=== PATIENT | male | born 1950 | race Two or more races ===

== ENCOUNTER 2018-04-21 08:31 | Emergency (ER) | payer MEDICARE ==
[2018-04-21] MEDS ORDERED: NORMAL SALINE 250 ML IV PRN ×2 (08:43→10:48)
[2018-04-21 08:57] LABS: ABSOLUTE LYMPHOCYTES (AUTO) 4.2 10^3/uL (0.5-4.7); ABSOLUTE MONOCYTES (AUTO) 0.6 10^3/uL (0.1-1.4); ABSOLUTE NEUT (AUTO) 9.2 10^3/uL (1.7-8.2); BASOPHILS % (AUTO) 0.2 % (0-2); EOSINOPHILS % (AUTO) 0.3 % (0-6); LYMPHOCYTES % (AUTO) 29.8 % (13-45); MEAN CORPUSCULAR HEMOGLOBIN 26.3 pg (27.0-33.4); MEAN CORPUSCULAR HGB CONC 31.1 g/dL (32.0-36.0); MEAN CORPUSCULAR VOLUME 85 fl (80-97); MONOCYTES % (AUTO) 4.1 % (3-13); PLATELET COUNT 119 10^3/uL (150-450); RED BLOOD COUNT 2.61 10^6/uL (4.35-5.55); SEGMENTED NEUTROPHILS % (AUTO) 65.6 % (42-78); TOTAL CELLS COUNTED % (AUTO) 100 %; WHITE BLOOD COUNT 14.1 10^3/uL (4.0-10.5)
[2018-04-21 09:04] LABS: HEMOGLOBIN 6.9 g/dL (13.5-17.0)
--- NOTE | 2018-04-21 09:13 | ER Document Report ---
ED GI Bleed / Rectal Pain - General Chief Complaint: Rectal Bleeding Stated Complaint: RECTAL BLEEDING Time Seen by Provider: 04/21/18 09:13 Notes: 67-year-old male to the emergency department via EMS for evaluation of bleeding. Patient was apparently unresponsive. Found in a pool of blood on the couch at home. Covered from head to toe and blood. Patient was recently treated at a local hospital. Had dialysis. Had a dialysis catheter placed in the right anterior chest. This was found pulled out by EMS. They were unable to obtain access so an intraosseous line was placed in the lower extremity. Patient was receiving IV fluids. On arrival to the emergency department patient was conscious of breathing. TRAVEL OUTSIDE OF THE [place] IN LAST 30 DAYS: No - HPI Patient complains to provider of: Bright red bld from rect., Dark red bld from rectum - Related Data Allergies/Adverse Reactions: No Known Allergies Allergy (Verified 04/21/18 09:05) Past Medical History - General Information source: Patient, Relative, [facility] Records - Social History Smoking Status: Current Every Day Smoker Cigarette use (# per day): Yes Drug Abuse: None Lives with: Spouse/Significant other Family History: Reviewed & Not Pertinent - Medical History Notes: Renal failure, GI bleed, diabetes Review of Systems - Review of Systems -: Yes ROS unobtainable due to patient's medical condition Physical Exam - Vital signs Vitals: Resp Pulse Ox 13 99 04/21/18 08:36 04/21/18 08:36 Interpretation: Hypotensive - General General appearance: Lethargic, Other - Ill-appearing, pale In distress: Moderate - HEENT Head: Normocephalic, Atraumatic Eyes: Normal Pupils: PERRL Notes: Small abrasion to the right occipital scalp but no obvious laceration. - Respiratory Respiratory status: No respiratory distress Chest status: Nontender Breath sounds: Normal Chest palpation: Normal - Cardiovascular Rhythm: Regular Heart sounds: Normal auscultation Murmur: No - Abdominal Inspection: Normal Distension: No distension Bowel sounds: Normal Tenderness: Nontender Organomegaly: No organomegaly - Rectal Tenderness: No Stool: Bloody - Back Back: Normal, Nontender - Extremities General upper extremity: Normal inspection, Nontender, Normal color, Normal ROM , Normal temperature General lower extremity: Normal inspection, Nontender, Normal color, Normal ROM , Normal temperature. No: Sanjay's sign - Neurological Neuro grossly intact: Yes Cognition: Normal Orientation: AAOx4 [place] Coma Scale Eye Opening: Spontaneous [place] Coma Scale Verbal: Oriented Armando Coma Scale Motor: Obeys Commands [place] Coma Scale Total: 15 Speech: Normal Motor strength normal: LUE, RUE, LLE, RLE Sensory: Normal - Psychological Associated symptoms: Normal affect, Normal mood - Skin Skin Temperature: Warm Skin Moisture: Dry Skin Color: Other - Patient is covered from head to toe and dried blood. Course - Re-evaluation Re-evalutation: 04/21/18 10:30 Patient covered in dried blood from head to toe. Hypotensive. Unable to obtain access peripherally. Immediately attention to IV access. A triple- lumen catheter central line was placed in the right femoral vein with ultrasound guidance. Please see procedure note. Returned good blood flow to each lumen. Intraosseous line was discontinued. Blood products were ordered immediately and rapid transfusion was begun. Normal saline ordered as well. Anticipate need for rapid transport. Will consult with [facility] in [facility] as patient was recently at that facility and is currently being followed by a nephrology group out of [place]. Patient has extremely elevated lactate but likely due to blood loss and hypoperfusion however has turbid urine. Could definitely represent a concomitant septic picture so we will do blood cultures and treat with broad-spectrum antibiotic. 04/21/18 10:32 04/21/18 10:49 Blood pressure has dropped again. Will order 2 more units of PRBCs for transfusion. Dr. Florian Barry MD has accepted patient for transfer to ICU at [facility]. Anticipate transfer shortly. 04/21/18 11:53 Laboratory 04/21/18 04/21/18 04/21/18 08:45 08:45 08:45 WBC 14.1 H RBC 2.61 L Hgb 6.9 L Hct 22.0 L MCV 85 MCH 26.3 L MCHC 31.1 L RDW 19.0 H Plt Count 119 L Seg Neutrophils % 65.6 Lymphocytes % 29.8 Monocytes % 4.1 Eosinophils % 0.3 Basophils % 0.2 Absolute Neutrophils 9.2 H Absolute Lymphocytes 4.2 Absolute Monocytes 0.6 Absolute Eosinophils 0.0 Absolute Basophils 0.0 PT INR APTT Sodium 136.7 L Potassium 5.9 H Chloride 103 Carbon Dioxide 22 Anion Gap 12 BUN 28 H Creatinine 3.14 H Est GFR ( Amer) 24 L Est GFR (Non-Af Amer) 20 L Glucose 118 H Lactic Acid Calcium 7.7 L Total Bilirubin 0.4 Direct Bilirubin 0.4 Neonat Total Bilirubin Not Reportable Neonat Direct Bilirubin Not Reportable Neonat Indirect Bili Not Reportable AST 73 H ALT 44 Alkaline Phosphatase 85 Creatine Kinase 34 L CK-MB (CK-2) Troponin I Total Protein 4.6 L Albumin 1.8 L Urine Color Urine Appearance Urine pH Ur Specific [place] Urine Protein Urine Glucose (UA) Urine Ketones Urine Blood Urine Nitrite Urine Bilirubin Urine Urobilinogen Ur Leukocyte Esterase Urine WBC (Auto) Urine RBC (Auto) Urine Bacteria (Auto) Urine WBC Clumps Urine Ascorbic Acid Blood Type O POSITIVE Antibody Screen NEGATIVE Crossmatch See Detail 04/21/18 04/21/18 04/21/18 08:45 09:15 09:15 WBC RBC Hgb Hct MCV MCH MCHC RDW Plt Count Seg Neutrophils % Lymphocytes % Monocytes % Eosinophils % Basophils % Absolute Neutrophils Absolute Lymphocytes Absolute Monocytes Absolute Eosinophils Absolute Basophils PT 18.2 H INR 1.43 APTT 35.1 Sodium Potassium Chloride Carbon Dioxide Anion Gap BUN Creatinine Est GFR ( Amer) Est GFR (Non-Af Amer) Glucose Lactic Acid 9.3 H Calcium Total Bilirubin Direct Bilirubin Neonat Total Bilirubin Neonat Direct Bilirubin Neonat Indirect Bili AST ALT Alkaline Phosphatase Creatine Kinase Cancelled CK-MB (CK-2) Troponin I Total Protein Albumin Urine Color Urine Appearance Urine pH Ur Specific [place] Urine Protein Urine Glucose (UA) Urine Ketones Urine Blood Urine Nitrite Urine Bilirubin Urine Urobilinogen Ur Leukocyte Esterase Urine WBC (Auto) Urine RBC (Auto) Urine Bacteria (Auto) Urine WBC Clumps Urine Ascorbic Acid Blood Type Antibody Screen Crossmatch 04/21/18 04/21/18 09:15 09:22 WBC RBC Hgb Hct MCV MCH MCHC RDW Plt Count Seg Neutrophils % Lymphocytes % Monocytes % Eosinophils % Basophils % Absolute Neutrophils Absolute Lymphocytes Absolute Monocytes Absolute Eosinophils Absolute Basophils PT INR APTT Sodium Potassium Chloride Carbon Dioxide Anion Gap BUN Creatinine Est GFR ( Amer) Est GFR (Non-Af Amer) Glucose Lactic Acid Calcium Total Bilirubin Direct Bilirubin Neonat Total Bilirubin Neonat Direct Bilirubin Neonat Indirect Bili AST ALT Alkaline Phosphatase Creatine Kinase CK-MB (CK-2) 1.51 Troponin I 0.018 Total Protein Albumin Urine Color YELLOW Urine Appearance TURBID Urine pH 7.0 Ur Specific [place] 1.011 Urine Protein 100 H Urine Glucose (UA) NEGATIVE Urine Ketones NEGATIVE Urine Blood MODERATE H Urine Nitrite NEGATIVE Urine Bilirubin NEGATIVE Urine Urobilinogen NEGATIVE Ur Leukocyte Esterase LARGE H Urine WBC (Auto) >182 Urine RBC (Auto) >182 Urine Bacteria (Auto) 1+ Urine WBC Clumps MANY Urine Ascorbic Acid NEGATIVE Blood Type Antibody Screen Crossmatch Chest X-Ray 04/21/18 10:21 IMPRESSION: NO ACUTE RADIOGRAPHIC FINDING IN THE CHEST. 04/21/18 12:00 Report is now available. Blood pressure still low but is currently stable for transport. - Vital Signs Vital signs: Temp Pulse Resp BP Pulse Ox 92.2 F L 73 10 L 84/54 L 100 04/21/18 11:33 04/21/18 11:50 04/21/18 11:50 04/21/18 11:50 04/21/18 11:50 - Laboratory Result Diagrams: 04/21/18 11:05 04/21/18 08:45 Laboratory results interpreted by me: 04/21/18 04/21/18 04/21/18 08:45 08:45 08:45 WBC 14.1 H RBC 2.61 L Hgb 6.9 L Hct 22.0 L MCH 26.3 L MCHC 31.1 L RDW 19.0 H Plt Count 119 L Absolute Neutrophils 9.2 H PT Sodium 136.7 L Potassium 5.9 H BUN 28 H Creatinine 3.14 H Est GFR ( Amer) 24 L Est GFR (Non-Af Amer) 20 L Glucose 118 H Lactic Acid Calcium 7.7 L AST 73 H Creatine Kinase 34 L Total Protein 4.6 L Albumin 1.8 L Urine Protein Urine Blood Ur Leukocyte Esterase Crossmatch See Detail 04/21/18 04/21/18 04/21/18 09:15 09:15 09:22 WBC RBC Hgb Hct MCH MCHC RDW Plt Count Absolute Neutrophils PT 18.2 H Sodium Potassium BUN Creatinine Est GFR ( Amer) Est GFR (Non-Af Amer) Glucose Lactic Acid 9.3 H Calcium AST Creatine Kinase Total Protein Albumin Urine Protein 100 H Urine Blood MODERATE H Ur Leukocyte Esterase LARGE H Crossmatch 04/21/18 11:05 WBC 12.6 H RBC 3.32 L Hgb 9.4 L D Hct 29.1 L MCH MCHC RDW 16.9 H Plt Count 97 L Absolute Neutrophils PT Sodium Potassium BUN Creatinine Est GFR ( Amer) Est GFR (Non-Af Amer) Glucose Lactic Acid Calcium AST Creatine Kinase Total Protein Albumin Urine Protein Urine Blood Ur Leukocyte Esterase Crossmatch - EKG Interpretation by Me EKG shows normal: Sinus rhythm, [place], Intervals, QRS Complexes, ST-T Waves Procedures - Central Line Right Femoral Time completed: 09:30 Consent obtained: Yes Central line pre-insertion: Sterile PPE donned, Chloraprep applied, Sterile drapes applied Central line lumen type: Triple Anesthetic type: 1% Lidocaine mL's of anesthesia: 2 Ultrasound guided: Yes Line secured with sutures: Yes Central line post-insertion: Blood return from lumens, Biopatch applied, Sutured , Sterile dressing applied Number of attempts: 1 Critical Care Note - Critical Care Note Total time excluding time spent on procedures (mins): 75 Comments: Hypotension, GI bleeding, consultation with specialist, coordination of transfer of care. Discharge - Discharge Clinical Impression: Acute GI bleeding, Lactic acidosis Sepsis Qualifiers: Sepsis type: sepsis due to unspecified organism Qualified Code(s): A41.9 - Sepsis, unspecified organism Urinary tract infection Qualifiers: Urinary tract infection type: site unspecified Hematuria presence: without hematuria Qualified Code(s): N39.0 - Urinary tract infection, site not specified Chronic renal failure Qualifiers: Chronic kidney disease stage: stage 4 (severe) Qualified Code(s): N18.4 - Chronic kidney disease, stage 4 (severe) Condition: Poor Disposition: [facility] Referrals: LONNIE OLIVAREZ MD [Primary Care Provider] - Follow up as needed
[2018-04-21 09:18] LABS: ALANINE AMINOTRANSFERASE 44 U/L (21-72); ALBUMIN 1.8 g/dL (3.5-5.0); ALKALINE PHOSPHATASE 85 U/L (38-126); ANION GAP 12 (5-19); ASPARTATE AMINO TRANSFERASE 73 U/L (17-59); BILIRUBIN,DIRECT 0.4 mg/dL (0.0-0.4); BILIRUBIN,TOTAL 0.4 mg/dL (0.2-1.3); BLOOD UREA NITROGEN 28 mg/dL (7-20); CALCIUM 7.7 mg/dL (8.4-10.2); CARBON DIOXIDE 22 mmol/L (22-30); CHLORIDE 103 mmol/L (98-107); CREATINE KINASE 34 U/L (55-170); GLUCOSE 118 mg/dL (75-110); POTASSIUM 5.9 mmol/L (3.6-5.0); SODIUM 136.7 mmol/L (137-145); TOTAL PROTEIN 4.6 g/dL (6.3-8.2)
[2018-04-21] MEDS ORDERED: CALCIUM GLUCONATE 1000 MG/10 ML INJ IV ONE (09:32)
[2018-04-21] MEDS ORDERED: PANTOPRAZOLE SODIUM 40 MG VIAL IV ONE (09:32)
[2018-04-21 09:36] LABS: INTERNATIONAL RATION (INR) 1.43; PROTHROMBIN TIME 18.2 SEC (11.4-15.4)
[2018-04-21 09:37] LABS: PARTIAL THROMBOPLASTIN TIME 35.1 SEC (23.5-35.8)
[2018-04-21] MEDS ORDERED: NORMAL SALINE 1000 ML 1,000 ML IV PRN (10:14)
[2018-04-21 10:15] LABS: CREATINE KINASE MB 1.51 ng/mL (<4.55); TROPONIN I 0.018 ng/mL
[2018-04-21] MEDS ORDERED: PANTOPRAZOLE SODIUM 40 MG VIAL IV PRN (10:19)
[2018-04-21 10:25] LABS: APPEARANCE,URINE TURBID; BILIRUBIN,URINE NEGATIVE (NEGATIVE); COLOR,URINE YELLOW; GLUCOSE, URINE NEGATIVE (NEGATIVE); KETONES,URINE NEGATIVE (NEGATIVE); LEUKOCYTE ESTERASE,URINE LARGE (NEGATIVE); NITRITE,URINE NEGATIVE (NEGATIVE); PROTEIN,URINE 100 mg/dL (NEGATIVE); URINE SPECIFIC GRAVITY 1.011; UROBILINOGEN,URINE NEGATIVE mg/dL (<2.0)
[2018-04-21] MEDS ORDERED: PIPERACILLIN/TAZOBACTAM 3.375 GM VIAL IV ONE (10:32)
[2018-04-21] MEDS ORDERED: NORMAL SALINE 1000 ML 1,000 ML IV ONE (10:46)
--- NOTE | 2018-04-21 10:46 | EKG REPORT ---
SEVERITY:- OTHERWISE NORMAL ECG - SINUS RHYTHM LOW VOLTAGE IN FRONTAL LEADS : Confirmed by: Erick Rice 21-Apr-2018 10:45:21
--- NOTE | 2018-04-21 11:20 | RADIOLOGY REPORT (SQ) ---
EXAM DESCRIPTION: CHEST SINGLE VIEW COMPLETED DATE/TIME: 04/21/2018 11:08 am REASON FOR STUDY: sob COMPARISON: None. EXAM PARAMETERS: NUMBER OF VIEWS: One view. TECHNIQUE: Single frontal radiographic view of the chest acquired. RADIATION DOSE: NA LIMITATIONS: None. FINDINGS: LUNGS AND PLEURA: No opacities, masses or pneumothorax. No pleural effusion. MEDIASTINUM AND HILAR STRUCTURES: No masses. Contour normal. HEART AND VASCULAR STRUCTURES: Heart normal in size. Normal vasculature. BONES: No acute findings. HARDWARE: None in the chest. OTHER: No other significant finding. IMPRESSION: NO ACUTE RADIOGRAPHIC FINDING IN THE CHEST. TECHNICAL DOCUMENTATION: JOB ID: [id number] [employer]- All Rights Reserved Reading location - IP/workstation name: [email or web address]
[2018-04-21 11:39] LABS: HEMATOCRIT 29.1 % (37.9-51.0); MEAN CORPUSCULAR HEMOGLOBIN 28.3 pg (27.0-33.4); MEAN CORPUSCULAR HGB CONC 32.3 g/dL (32.0-36.0); MEAN CORPUSCULAR VOLUME 88 fl (80-97); RED BLOOD COUNT 3.32 10^6/uL (4.35-5.55); RED CELL DISTRIBUTION WIDTH 16.9 % (11.5-14.0); WHITE BLOOD COUNT 12.6 10^3/uL (4.0-10.5)
[2018-04-21 11:46] LABS: HEMOGLOBIN 9.4 g/dL (13.5-17.0); PLATELET COUNT 97 10^3/uL (150-450)
[2018-04-21 12:08] VITALS: BP 109/92
== END 2018-04-21 12:17 | disposition short-term general hospital (02) ==
LOC: ER 08:31
PROC: 06HM33Z Insertion of Infusion Device into Right Femoral Vein, Percutaneous Approach (ICD-10-PCS; principal; 2018-04-21)
DX: K92.2 Gastrointestinal hemorrhage, unspecified (principal); E87.2 Acidosis; A41.9 Sepsis, unspecified organism; N39.0 Urinary tract infection, site not specified; N18.4 Chronic kidney disease, stage 4 (severe); Z99.2 Dependence on renal dialysis; F17.210 Nicotine dependence, cigarettes, uncomplicated
CPT/HCPCS: 93005; 96376; 99291; 99292; 51702; 96375; 96365; 96368; 86900; 86901; 36415; 87040; 87086; 82553; 36430; 86850; 82550; 85025; 85027; 85610; 85730; 80053; 81001; 84484; 86920; 83605; 71045; 93010; 36556; C1751; P9016; J0610; C9113; J7030; J2543; S0164

== ENCOUNTER 2018-05-27 13:00 | Day surgery (SDC) | payer MEDICARE ==
[~2018-05-27 13:00] MED LIST: BACITRACIN INJ 50,000 UNIT VIAL ONE; BUPIVACAINE HCL 0.25 % INJ/PF (2.5 MG/1 ML) 30 ML VIAL ONE; BUPIVACAINE HCL 0.5 % INJ/PF 30 ML SDV ONE; HEPARIN SODIUM,PORCINE/NS/PF 0 UNIT/0 ML RTUINJ IV ONE; LIDOCAINE 0.5% INJ-PF (5 MG/ML) 50 ML SDV ONE
[2018-05-27] MEDS ORDERED: CEFAZOLIN 2 GM/D5W RTU 2 GM/50 ML RTUPB IV ONE (13:15)
[2018-05-27 13:35] LABS: HEMATOCRIT 31.8 % (37.9-51.0); HEMOGLOBIN 10.2 g/dL (13.5-17.0); MEAN CORPUSCULAR HEMOGLOBIN 28.9 pg (27.0-33.4); MEAN CORPUSCULAR HGB CONC 32.2 g/dL (32.0-36.0); MEAN CORPUSCULAR VOLUME 90 fl (80-97); PLATELET COUNT 209 10^3/uL (150-450); RED BLOOD COUNT 3.54 10^6/uL (4.35-5.55); WHITE BLOOD COUNT 11.9 10^3/uL (4.0-10.5)
[2018-05-27 13:55] LABS: ANION GAP 11 (5-19); BLOOD UREA NITROGEN 39 mg/dL (7-20); CALCIUM 8.9 mg/dL (8.4-10.2); CARBON DIOXIDE 28 mmol/L (22-30); CHLORIDE 104 mmol/L (98-107); GLUCOSE 218 mg/dL (75-110); POTASSIUM 3.6 mmol/L (3.6-5.0); SODIUM 143.1 mmol/L (137-145)
[2018-05-27] MEDS ORDERED: LIDOCAINE 0.5% INJ-PF (5 MG/ML) 50 ML SDV ONE (14:03)
[2018-05-27] MEDS ORDERED: MIDAZOLAM 2 MG/2 ML INJ ONE (14:03)
[2018-05-27] MEDS ORDERED: BACITRACIN INJ 50,000 UNIT VIAL ONE (14:03)
[2018-05-27] MEDS ORDERED: FENTANYL CITRATE INJ/PF 100 MCG/2 ML AMPUL ONE (14:03)
--- NOTE | 2018-05-27 14:04 | PDOC H&P ---
General Chief Complaint: This patient was referred from the dialysis center for placement of a permacatheter. He has been dialyzed for the last month or so through a right- sided permacatheter which apparently fell out 2 days ago. He did not receive his regular dialysis on Thursday which was yesterday and I was called today to put in a catheter. - Diagnosis (1) End-stage renal disease on hemodialysis Is this a Current Diagnosis?: Yes (2) Insulin dependent diabetes mellitus Is this a Current Diagnosis?: Yes (3) History of GI bleed Is this a Current Diagnosis?: Yes (4) Weight loss, non-intentional Is this a Current Diagnosis?: Yes (5) Low blood pressure Is this a Current Diagnosis?: Yes - Current Medications/Allergies Home Medications: Citalopram Hydrobromide [Citalopram HBr] 10 tab PO DAILY 05/27/18 Folic Acid [Folvite 1 mg Tablet] 1 mg PO DAILY 05/27/18 Insulin Glargine,Hum.rec.anlog [Lantus Insulin 100 Unit/1 ml 10 ml] 1 tab PO DAILY 05/27/18 Lisinopril [Prinivil 10 mg Tablet] 1 tab PO DAILY 05/27/18 Oxybutynin [Oxytrol For Women] 5 mg PO DAILY 05/27/18 Pantoprazole Sodium [Protonix] 20 mg PO DAILY 05/27/18 Sevelamer Carbonate [Renvela] 0.8 mg PO DAILY 05/27/18 Tamsulosin HCl [Flomax] 0.4 mg PO DAILY 05/27/18 Thiamine HCl [Thiamine 100 mg Tablet] 1 tab PO DAILY 05/27/18 Allergies/Adverse Reactions: No Known Allergies Allergy (Verified 04/21/18 09:05) Past Medical History Cardiac Medical History: Reports: Myocardial Infarction, Hypertension Denies: Coronary Artery Disease Pulmonary Medical History: Denies: Asthma, Bronchitis, Chronic Obstructive Pulmonary Disease (COPD), Pneumonia Neurological Medical History: Denies: Seizures Musculoskeltal Medical History: Denies: Arthritis Hematology: Reports: Anemia Family History Family History: Reviewed & Not Pertinent Parental Family History Reviewed: No Children Family History Reviewed: No Sibling(s) Family History Reviewed.: No Social History Smoking Status: Current Every Day Smoker Physical Exam Vital Signs: Temp Pulse Resp BP Pulse Ox 97.4 F 69 16 138/88 H 100 05/27/18 13:43 05/27/18 13:43 05/27/18 13:43 05/27/18 13:43 05/27/18 13:43 Intake & Output 05/26/18 05/27/18 05/28/18 06:59 06:59 06:59 Weight 56.245 kg Additional comments: Constitutional: Well-developed well-nourished gentleman. No apparent acute distress. He is in a wheelchair. Eyes: Mucous membranes pink and moist, pupils equal and reactive to light. Conjunctiva normal. Cornea normal. Wears spectacles ENT: Hearing grossly normal. External pinna normal to inspection. Missing teeth. Tongue normal to inspection. Chest: Already closed scars of right sided permacatheter noted. Respiratory breath sounds are present bilaterally, normal. Normal respiratory effort. Skin: Thin, fragile. Psychiatric: Judgment, memory, insight seem normal. Mood is pleasant and appropriate. Extremities: Upper extremities show normal range of movement. Pulses present noted to the radial arteries. Capillary refill normal. No cyanosis noted. Muscle wasting noted. Impression/Plan Plan: In this patient who requires hemodialysis replacement of a permacatheter is well indicated. The procedure, its risks, benefits, expected outcome and alternatives are familiar to the patient and his . They wish to proceed.
--- NOTE | 2018-05-27 15:19 | Discharge Summary ---
Discharge Summary (SDC) - Discharge Final Diagnosis: #1 end-stage renal disease on hemodialysis. 2. Diabetes mellitus type 2. 3. History of GI bleed. 4. Unintended weight loss. 5. Hypotension Date of Surgery: 05/27/18 Condition: Poor Treatment or Instructions: Discharge home [after recovery per ASU criteria]. Diet , [renal],as tolerated, when fully awake advance as tolerated. Activities within moderation encouraged. Follow up in my office by appointment in about [1 week]. Call for appointment. Leave wounds [covered], [keep clean and dry, until office visit in 1 week]. Hold of on school/work [until evaluation in office]. Meds per med rec. May shower [in 48 hrs], [try to keep operated area as dry as possible]. Referrals: [facility] [employer] PROGRAM ASSISTANT-[facility] [Primary Care Provider] - Discharge Diet: Other (Comments) - Renal, diabetic. Respiratory Treatments at Home: Deep Breathing/Coughing Discharge Activity: Activity As Tolerated Report the Following to Your Physician Immediately: Shortness of Breath, Unusual Bleeding
--- NOTE | 2018-05-27 15:23 | Operative Report ---
Operative Report DATE OF SURGERY: 05/27/18 PREOPERATIVE DIAGNOSIS: #1 end-stage renal disease on hemodialysis. 2. Diabetes mellitus type 2. 3. History of GI bleed. 4. Unintended weight loss. 5. Hypotension POSTOPERATIVE DIAGNOSIS: #1 end-stage renal disease on hemodialysis. 2. Diabetes mellitus type 2. 3. History of GI bleed. 4. Unintended weight loss. 5. Hypotension OPERATION: 1. Ultrasound evaluation and real-time guided access into the right internal jugular vein. 2. PermCath insertion via real-time ultrasound-guided access in the right internal jugular vein. 3. Angiogram and interpretation. SURGEON: Hany LONDON MOLD PRESS OPERATOR: None. ANESTHESIA: Moderate Sedation TISSUE REMOVED OR ALTERED: Not applicable. COMPLICATIONS: None. ESTIMATED BLOOD LOSS: 5 mL. INTRAOPERATIVE FINDINGS: Of a robust right internal jugular vein to support permacatheter. Easily about 1.5 cm across. Stranding noted in the lumen, consistent with scarring from previous intervention. Hard copy documentation preserved. Satisfactory placement with the tip well down in the right atrium. Easy egress of blood and ingress of heparinized solution through both ports. Angiogram demonstrated smooth flow of contrast through the right atrium, ventricle and pulmonary outflow tract. PROCEDURE: After obtaining informed consent, the patient was taken to the [Video Games Mechanic] and positioned supine. The [right neck] and chest were prepared with chlorhexidine and draped out with sterile linen. After the " universal timeout", in which it was verified that the patient continued to receive antibiotic, the procedure commenced. A steriley sheathed ultrasound probe was used to evaluate the [ right internal jugular] vein. Local anesthesia was infiltrated adjacent to the probe. Access into the [right internal jugular] vein was obtained using a micropuncture needle, followed by micropuncture wire and then a micropuncture catheter. This was followed by introduction of a 0.035 guidewire the tip of which was placed down into the inferior vena cava . A 23 cm long permacatheter was now positioned over the chest and an exit site marked and locally anesthetized ,the catheter was placed between the 2 incisions. Proximally, the catheter was now positioned using a peel-away sheath, after dilation. Easy ingress of heparinized solution and egress of blood obtained through both ports. A completion angiogram was done by injecting contrast. The findings were as dictated. The neck incision was now closed using interrupted 3-0 PDS to the subcutaneous tissues, the catheter was anchored at the exit site using 3- 0 PDS. A Biopatch device was now placed adjacent to the catheter. Dressings were applied and the procedure concluded. Copies of the dictated operative report for Dr. Hany Pressley MD.concluded. Copies of the dictated operative report for Dr. Hany Pressley MD.
[2018-05-27 17:04] VITALS: BP 132/76
--- NOTE | 2018-05-28 08:34 | RADIOLOGY REPORT (SQ) ---
EXAM DESCRIPTION: TUNNELED CENTRAL LINE COMPLETED DATE/TIME: 05/28/2018 8:00 am REASON FOR STUDY: VASCULAR ACCESS N18.6 END STAGE RENAL DISEASE COMPARISON: None. FLUOROSCOPY TIME: 0.3 minutes 10 digital radiographic images saved to PACS. TECHNIQUE: Intra-operative images acquired during surgical procedure to evaluate progress. NUMBER OF IMAGES: 10 LIMITATIONS: None. FINDINGS: Intra procedural imaging and fluoro during right-sided jugular central venous dialysis cat heter placement. Please see the operative report for further details IMPRESSION: INTRA PROCEDURAL IMAGING AND FLUORO ABOVE . COMMENT: Quality ID [id number]: Final reports for procedures using fluoroscopy that document radiation exp osure indices, or exposure time and number of fluorographic images (if radiation exposure indices are not available) Please consult full operative report of the attending physician for description of the procedure. TECHNICAL DOCUMENTATION: JOB ID: [id number] [employer]- All Rights Reserved Reading location - IP/workstation name: [email or web address]
== END 2018-05-27 16:50 | disposition home or self-care (01) ==
LOC: OROUT 13:00
PROVIDERS: ATTEND Surgery
DX: E11.22 Type 2 diabetes mellitus with diabetic chronic kidney disease (principal); N18.6 End stage renal disease; Z99.2 Dependence on renal dialysis; Z79.4 Long term (current) use of insulin; Z87.19 Personal history of other diseases of the digestive system; R63.4 Abnormal weight loss; I95.9 Hypotension, unspecified
CPT/HCPCS: 36415; 85027; 80048; 36558; 76937; 77001; C1713; J2250; J3490 ×2; J3010; J1644; J0690

== ENCOUNTER 2018-06-09 09:57 | Emergency (ER) | payer MEDICARE ==
[2018-06-09 12:01] LABS: BLOOD UREA NITROGEN 31 mg/dL (7-20); CALCIUM 7.6 mg/dL (8.4-10.2); GLUCOSE 43 mg/dL (75-110); POTASSIUM 3.7 mmol/L (3.6-5.0)
[2018-06-09 12:07] LABS: CARBON DIOXIDE 27 mmol/L (22-30); CHLORIDE 108 mmol/L (98-107); SODIUM 141.9 mmol/L (137-145)
[2018-06-09 12:12] LABS: ANION GAP 7 (5-19)
--- NOTE | 2018-06-09 14:04 | ER Document Report ---
ED Blood Sugar Problem - General Chief Complaint: Low Blood Sugar Stated Complaint: LOW BLOOD SUGAR Time Seen by Provider: 06/09/18 10:23 TRAVEL OUTSIDE OF THE [place] IN LAST 30 DAYS: No - HPI Patient complains to provider of: low bg Onset: Other - 67 yo with ESRD and DM that presents for unrespinsiveness this morning. He was initially found with a blood glucose of 20. He was given d50 and respinded with an improvement in his mental status. He was due for dialysis today but missed. His says she dosed his 16 units last night before bed as directed of his long acting insulin. no other recent illnesses or issues. - Related Data Allergies/Adverse Reactions: No Known Allergies Allergy (Verified 04/21/18 09:05) Past Medical History - General Information source: Patient, Relative - Social History Smoking Status: Unknown if Ever Smoked Family History: Reviewed & Not Pertinent Patient has suicidal ideation: No Patient has homicidal ideation: No - Past Medical History Cardiac Medical History: Reports: Hx Heart Attack, Hx Hypertension Denies: Hx Coronary Artery Disease Pulmonary Medical History: Denies: Hx Asthma, Hx Bronchitis, Hx COPD, Hx Pneumonia Neurological Medical History: Denies: Hx Cerebrovascular Accident, Hx Seizures Renal/ Medical History: Denies: Hx Peritoneal Dialysis Musculoskeletal Medical History: Denies Hx Arthritis - Immunizations Hx Diphtheria, Pertussis, Tetanus Vaccination: Yes Review of Systems - Review of Systems -: Yes All other systems reviewed and negative Physical Exam - Vital signs Vitals: Pulse Resp BP Pulse Ox 64 18 148/82 H 99 06/09/18 10:00 06/09/18 10:00 06/09/18 10:00 06/09/18 10:00 - General General appearance: Appears well In distress: None - HEENT Head: Normocephalic, Atraumatic Eyes: Normal Pupils: PERRL - Respiratory Respiratory status: No respiratory distress Chest status: Nontender Breath sounds: Normal Chest palpation: Normal - Cardiovascular Rhythm: Regular Heart sounds: Normal auscultation Murmur: No - Abdominal Inspection: Normal Distension: No distension Bowel sounds: Normal Tenderness: Nontender Organomegaly: No organomegaly - Back Back: Normal, Nontender - Extremities General upper extremity: Normal inspection, Nontender, Normal color, Normal ROM , Normal temperature General lower extremity: Normal inspection, Nontender, Normal color, Normal ROM , Normal temperature, Normal weight bearing. No: Sanjay's sign - Neurological Neuro grossly intact: Yes Cognition: Normal Orientation: AAOx4 [place] Coma Scale Eye Opening: Spontaneous Armando Coma Scale Verbal: Oriented Armando Coma Scale Motor: Obeys Commands Sar[place] Coma Scale Total: 15 Speech: Normal Motor strength normal: LUE, RUE, LLE, RLE Sensory: Normal - Psychological Associated symptoms: Normal affect, Normal mood Course - Re-evaluation Re-evalutation: 67 yo with hypoglycemia after dosing insulin before bed. HE is now able to tolerate PO and neurologically at baseline. I called his primary physician who notes that his habitually alters the medications he takes as she sees fit. She notes his insulin is to be dosed in the morning 16 U without any doses at night. She also stated it is imperative he eats after his medication administration Did the teach back nereyda hester patient and , they were able to verbalize and descrube when to administer insulin dose- 16 units in the morning wit hmeal therafter. He was ambulatory, able to tolerate PO and well appearing at the time of discharge though his temperature was a but diminished from normal range. - Vital Signs Vital signs: Temp Pulse Resp BP Pulse Ox 99.1 F 71 18 136/64 H 99 06/09/18 14:58 06/09/18 14:58 06/09/18 17:23 06/09/18 17:23 06/09/18 14:58 - Laboratory Result Diagrams: 06/09/18 11:24 Laboratory results interpreted by me: 06/09/18 06/09/18 11:07 11:24 Chloride 108 H BUN 31 H Creatinine 2.86 H Est GFR ( Amer) 27 L Est GFR (Non-Af Amer) 22 L Glucose 43 L POC Glucose 63 L Calcium 7.6 L Discharge - Discharge Clinical Impression: Hypoglycemia Condition: Stable Disposition: HOME, SELF-CARE Instructions: Hypoglycemia ([facility]) Additional Instructions: Your seen today in the emergency department for your low blood sugar. You should take insulin once daily. Take only 16 units of your insulin in the morning. Do not take any insulin at night. Make sure that if you take your insulin you are eating afterwards. Return for worsening fevers, chills, lightheadedness or unresponsiveness. Referrals: ERNST HECK, SPONSORSHIP COORDINATOR-C [Primary Care Provider] - Follow up as needed
[2018-06-09 17:39] VITALS: BP 136/64
--- NOTE | 2018-06-09 21:07 | EKG REPORT ---
SEVERITY:- ABNORMAL ECG - SINUS RHYTHM FIRST DEGREE AV BLOCK LOW VOLTAGE IN FRONTAL LEADS : Confirmed by: Melony Bailey MD 09-Jun-2018 21:05:56
== END 2018-06-09 17:39 | disposition home or self-care (01) ==
LOC: ER 09:57
DX: E11.22 Type 2 diabetes mellitus with diabetic chronic kidney disease (principal); E11.65 Type 2 diabetes mellitus with hyperglycemia; I12.0 Hypertensive chronic kidney disease with stage 5 chronic kidney disease or end stage renal disease; N18.6 End stage renal disease; Z99.2 Dependence on renal dialysis; Z79.4 Long term (current) use of insulin
CPT/HCPCS: 36415; 80048; 82962; 93005; 93010; 99284

== ENCOUNTER 2018-06-21 09:35 | Emergency (ER) | payer MEDICARE ==
[2018-06-21] MEDS ORDERED: DEXTROSE 50%-WATER 25 GM/50 ML DISP.SYRIN IV ONE ×4 (09:37→11:55)
--- NOTE | 2018-06-21 09:38 | ER Document Report ---
ED General - General Mode of Arrival: Medic Information source: Emergency Med Personnel TRAVEL OUTSIDE OF THE [place] IN LAST 30 DAYS: No <JASMYN HUTTON - Last Filed: 06/21/18 14:16> <EDWINA MARTINEZ - Last Filed: 06/21/18 14:36> - General Stated Complaint: WEAKNESS Time Seen by Provider: 06/21/18 09:35 Notes: Patient is a 67-year-old male with CAD, COPD, BPH, ESRD with a history of hypoglycemia, GI bleed and MN presents to the emergency department via EMS due to being unresponsive. EMS states that the patient's girlfriend found the patient unresponsive when attempting to wake him this morning. She states that the patient's last normal was approximately 2100 last night after administering Lantus. Upon arrival to the ED the patient was given D50, after which he started to become more active. Patient's initial blood sugar was 21 upon EMS arrival to the scene. EMS proceeded to administer 100 mL of D10 after which the patient had a blood sugar of 92. EMS rechecked the patient and found is blood sugar dropped to 54 and administered 150 ml of D10 after which the patient's blood sugar was 84. EMS reports the patient being unresponsive to auditory or noxious stimuli. They report the patient only opening is left eye on occasion. According to [facility] records, patient was seen here on 06/09/2018 complaining of similar symptoms. Attending physician at that time had an extensive conversation with patient's girlfriend who reported she changes the patients medications as she sees fit. She further stated she is aware she is supposed to administer the patient's Lantus in the morning although she administers it at night. Patient also has a history of a GI bleed and reported to this emergency department on 04/21/2018 and was transferred to [facility]. (JASMYN HUTTON) - Related Data Allergies/Adverse Reactions: No Known Allergies Allergy (Verified 04/21/18 09:05) Past Medical History - General Information source: Emergency Med Personnel - Social History Smoking Status: Unknown if Ever Smoked Family History: Reviewed & Not Pertinent - Past Medical History Cardiac Medical History: Reports: Hx Coronary Artery Disease, Hx Heart Attack, Hx Hypertension - Immunizations Hx Diphtheria, Pertussis, Tetanus Vaccination: Yes <JASMYN HUTTON - Last Filed: 06/21/18 14:16> Review of Systems - Review of Systems -: Yes ROS unobtainable due to patient's medical condition <JASMYN HUTTON - Last Filed: 06/21/18 14:16> Physical Exam <JASMYN HUTTON - Last Filed: 06/21/18 14:16> - Vital signs Vitals: Resp BP Pulse Ox 16 104/54 L 97 06/21/18 09:39 06/21/18 09:39 06/21/18 09:39 - Notes Notes: GENERAL: Obtunded. Minimally responsive to noxious stimuli. HEAD: Normocephalic, atraumatic. EYES: Pupils equal, round, and reactive to light. Extraocular movements intact. ENT: Oral mucosa moist, tongue midline. NECK: Full range of motion. Supple. Trachea midline. LUNGS: 2L of nasal cannula. Initially guppy breathing before receiving D50. Coarse breath sounds, Copious rhonchi and wheezes, equally bilaterally. Dialysis catheter in right upper anterior chest wall. HEART: Regular rate and rhythm. No murmurs, gallops, or rubs. ABDOMEN: Soft, non-tender. Non-distended. Bowel sounds present in all 4 quadra nts. EXTREMITIES: Moves all 4 extremities spontaneously. Chronic pitting edema in BLE. NEUROLOGICAL: Obtunded. Minimally responsive to noxious stimuli. Becomes more active after receiving D50. PSYCH: Obtunded. SKIN: Warm. Multiple scabs on BUE and BLE. Stage 2 developing pressure ulcers on bilateral buttocks. (JASMYN HUTTON) Course - Laboratory Result Diagrams: 06/21/18 09:50 06/21/18 09:50 <JASMYN HUTTON - Last Filed: 06/21/18 14:16> - Laboratory Result Diagrams: 06/21/18 09:50 06/21/18 09:50 - Diagnostic Test Radiology reviewed: Image reviewed, Reports reviewed - Chest x-ray shows no left lower lobe infiltrate - EKG Interpretation by Pr EKG shows normal: Sinus rhythm, [place], Intervals, ST-T Waves. abnormal: QRS Complexes - Inferior Q's Rate: Normal - 71 Heart block present: 1st Degree When compared to previous EKG there are: Previous EKG unavailable <EDWINA MARTINEZ - Last Filed: 06/21/18 14:36> - Re-evaluation Re-evalutation: 06/21/18 10:10 Patient rechecked. Patient will open eyes with noxious stimuli. When asking questions, patient will grunt but not give a coherent answer. According to yeimy loja, patient normally speaks. Rechecked patient's blood sugar which was found to be 126. Will administer an ammonia capsule to see if patient will answer questions coherently. (JASMYN HUTTON) 06/21/18 10:14 When the ammonia inhalant was placed in the note of the patient's nose, he responded immediately, and when instructed to speak he began talking giving appropriate answers to questions. He was obviously intentionally uncooperative prior to the ammonia capsule. 06/21/18 10:51 The patient has a chest x-ray that suggest a left lower lobe pneumonia. His urine was quite thick and cloudy and showed TNTC WBCs and TNTC RBCs. 06/21/18 14:21 The eventual urine output was 1,500 mL's. The patient spouse states that he has not been making urine. He also was found to have decubitus ulcers developing on his buttocks. She states he will not get up and walk around although he is capable and has a walker. I told her to put his cigarettes on the far side of the room to force him to get up since he will definitely get up to get his cigarettes even if he want to get up to eat or go to the restroom. The patient's pulse ox reading is 92% on room air. He is not tachypneic. He actually is quite comfortable and keeps putting the sheet over his head to block the light from his eyes. He states he just wants to get some sleep. When I had the patient take deep breaths and cough, he was able to do this without difficulty and did have diffuse rhonchi wheezes without any decreased breath sounds in the area that the pneumonia was located. His breath sounds are c onsistent with his long smoking history and COPD. Patient does want to go home, he is not tachycardic, he is not tachypneic, and he is not hypoxic. He does not have a leukocytosis. He will be discharged on doxycycline to cover the urine and the lung infiltrate. He will have the [place] catheter left in place due to the urine retention. The patient normally dialyzes on Thursday, he went yesterday and he will dialyze again on Thursday. His BUN is 14 today and his creatinine is 2 .32, and he will dialyze again in 2 days, so doxycycline should be safe to take. (EDWINA MARTINEZ) - Vital Signs Vital signs: Temp Pulse Resp BP Pulse Ox 95.8 F L 72 21 H 147/71 H 96 06/21/18 12:58 06/21/18 10:05 06/21/18 12:58 06/21/18 12:58 06/21/18 12:58 - Laboratory Laboratory results interpreted by me: 06/21/18 06/21/18 06/21/18 09:50 09:50 09:50 RBC 3.16 L Hgb 10.0 L Hct 30.7 L RDW 24.9 H Plt Count 115 L Seg Neutrophils % 82.6 H Lymphocytes % 12.2 L VBG HCO3 32.9 H Anion Gap 2 L Creatinine 2.32 H Est GFR ( Amer) 34 L Est GFR (Non-Af Amer) 28 L Glucose 197 H POC Glucose Calcium 7.7 L ALT 18 L Creatine Kinase < 20 L Total Protein 4.8 L Albumin 1.9 L Urine Protein Urine Blood Ur Leukocyte Esterase 06/21/18 06/21/18 06/21/18 09:50 10:06 12:58 RBC Hgb Hct RDW Plt Count Seg Neutrophils % Lymphocytes % VBG HCO3 Anion Gap Creatinine Est GFR ( Amer) Est GFR (Non-Af Amer) Glucose POC Glucose 126 H 115 H Calcium ALT Creatine Kinase Total Protein Albumin Urine Protein 100 H Urine Blood MODERATE H Ur Leukocyte Esterase LARGE H Critical Care Note - Critical Care Note Total time excluding time spent on procedures (mins): 45 <EDWINA MARTINEZ - Last Filed: 06/21/18 14:36> Discharge <JASMYN HUTTON - Last Filed: 06/21/18 14:16> <EDWINA MARTINEZ - Last Filed: 06/21/18 14:36> - Discharge Clinical Impression: Hypoglycemia, End-stage renal disease on hemodialysis, Urinary retention Altered mental status Qualifiers: Altered mental status type: unspecified Qualified Code(s): R41.82 - Altered mental status, unspecified Urinary tract infection Qualifiers: Urinary tract infection type: site unspecified Hematuria presence: with hematuria Qualified Code(s): N39.0 - Urinary tract infection, site not specified; R31.9 - Hematuria, unspecified Pneumonia Qualifiers: Pneumonia type: due to unspecified organism Laterality: left Lung location: lower lobe of lung Qualified Code(s): J18.1 - Lobar pneumonia, unspecified organism Condition: Stable Disposition: HOME, SELF-CARE Additional Instructions: Hypoglycemia You have suffered an episode of hypoglycemia (low blood sugar). Typical symptoms of hypoglycemia are shaking, sweating, headache, and confusion. When severe, unconsciousness or seizure may occur. Hypoglycemia occurs when a person taking insulin or diabetes pills has a change in the amount of blood sugar available -- due to exercise, decreased food intake, or alcohol. Should you feel symptoms of hypoglycemia again, immediately take some form of sugar such as sweetened juice. As the reaction subsides, eat a complex carbohydrate such as bread. If possible, check your blood sugar using a chemical strip. If episodes are occurring without obvious explanation, contact your physician for further evaluation. Urinary Retention Urinary retention is inability to empty the bladder. It can result from a urine infection, or from mechanical problems such as an enlarged prostate gland or swelling of the urethra. Drugs or alcohol can also lead to urine retention. The condition is usually treated by passage of a catheter. If the physician thinks the problem will continue, the catheter may be left in place for a few days. Sometimes drugs are used to stimulate the bladder if the physician feels that inadequate bladder contraction is the cause. If the condition leading to the retention is a chronic one, such as an enlarged prostate, you will be referred to a specialist for further care. Call the physician or return if you develop fever, flank or back pain, pain on urination, or recurrent difficulty passing the urine. Urinary Tract Infection Your evaluation indicates that you have a urinary tract infection. This is due to germs growing in the bladder. This is a common problem. This infection usually responds quickly to antibiotics. Your antibiotic should be taken exactly as prescribed. Drink plenty of fluids -- three to four quarts a day. Occasionally, a bladder anesthetic will be prescribed to help stop the feeling of urgency until the antibiotic has a chance to clear the infection. This may cause your urine to be dark orange. Certain urine infections require a culture. If the doctor obtained a culture, the results will be back in two days. You should call to see if a change in treatment is needed. A repeat urinalysis after you finish treatment is often recommended. The physician will let you know if further testing is required. Call the doctor if you develop fever, chills, flank pain, inability to urinate, or blood in the urine. Pneumonia Your examination indicates that you have pneumonia. This is an infection of the lung tissue, usually caused by bacteria or a virus. Symptoms include cough, fever, shaking chills, chest pain, shortness of breath, and coughing up bloody sputum. Treatment for bacterial pneumonia includes rest, antibiotics for 10 to 14 days, increasing your clear liquid intake, a cool mist humidifier at your bedside, and fever medication. Often, a repeat chest X-ray is performed in a few weeks--even if you feel better--to ascertain whether the infection has completely resolved and no underlying lung problem is present. You should call the physician if you develop persistent vomiting, high fever that does not respond to fever medication, increasing shortness of breath, confusion, or lethargy. Also, failure to improve within two to three days is an indication for re-examination. Chronic Obstructive Lung Disease You have chronic obstructive lung disease (COPD). The symptoms come from emphysema (damage to small airways, with trapping of air in large sacks in the lung) and chronic bronchitis (repeated infection and damage to larger airways). The cause is almost always cigarette smoking, although dust exposure, asthma, and infections contribute. You should avoid fumes, dust, and smoke (especially tobacco smoke). Your condition will flare from time to time. There is no cure, but the symptoms can be treated. Bronchodilators (asthma medicine) are often helpful. Antibiotics help when infection is present. When shortness of breath is severe, we may prescribe cortisone medication. If medicine doesn't help enough, we can arrange for you to have an oxygen tank at home. Notify your doctor at once if sputum becomes thick, foul, or bloody, if you develop a fever or chest pain, or if your shortness of breath worsens. Take the antibiotic as prescribed. Try to stop smoking. Be sure to check your blood sugars when you go to bed, and when you get up in the morning and keep a record of the blood sugars and what you eat at bedtime. Follow-up with your primary care provider on Thursday or . Take copies of the discharge instructions, lab work and x-ray reports with you. Prescriptions: Doxycycline Hyclate 100 mg PO BID #20 tablet.dr Referrals: ERNST HECK, AUDITING MANAGER-C [Primary Care Provider] - 06/23/18 Diptiibe Attestation: 06/21/18 14:25 I personally performed the services described in the documentation, reviewed and edited the documentation which was dictated to the scribe in my presence, and it accurately records my words and actions. (EDWINA MARTINEZ) Scribe Documentation - Scribe Written by Tre:: Tre Hernandez, 06/21/2018 10:02 acting as scribe for :: John <JASMYN HUTTON - Last Filed: 06/21/18 14:16>
[2018-06-21] MEDS ORDERED: AMMONIA INHALANTS 10 AMPUL/BOX IH ONE ×2 (10:09)
[2018-06-21 10:14] LABS: VENOUS BLOOD BASE EXCESS 6.2 mmol/L; VENOUS BLOOD HCO3 32.9 mmol/L (20-32); VENOUS BLOOD PCO2 59.9 mmHg (35-63); VENOUS BLOOD PH 7.36 (7.30-7.42)
[2018-06-21 10:16] LABS: ABSOLUTE LYMPHOCYTES (AUTO) 0.8 10^3/uL (0.5-4.7); BASOPHILS % (AUTO) 0.2 % (0-2); EOSINOPHILS % (AUTO) 0.1 % (0-6); TOTAL CELLS COUNTED % (AUTO) 100 %
--- NOTE | 2018-06-21 10:16 | RADIOLOGY REPORT (SQ) ---
EXAM DESCRIPTION: CHEST SINGLE VIEW COMPLETED DATE/TIME: 06/21/2018 10:06 am REASON FOR STUDY: Unresponsive COMPARISON: Chest film 04/21/2018 Chest fluoro during central line placement 05/27/2018 EXAM PARAMETERS: NUMBER OF VIEWS: One view. TECHNIQUE: Single frontal radiographic view of the chest acquired. RADIATION DOSE: NA LIMITATIONS: None. FINDINGS: LUNGS AND PLEURA: Left lower lobe collapse and consolidation with air bronchograms worriso me for pneumonia. This is new compared to 04/21/2018 and fluoroscopy imaging 05/27/2018. Right lung free of focal infiltrates. No pleural effusions or pneumothorax. MEDIASTINUM AND HILAR STRUCTURES: No masses. Contour normal. HEART AND VASCULAR STRUCTURES: Heart normal in size. Normal vasculature. BONES: No acute findings. HARDWARE: Right jugular central line catheter tip in the right atrium OTHER: No other significant finding. IMPRESSION: Left lower lobe pneumonia TECHNICAL DOCUMENTATION: JOB ID: [id number] Remember [employer]- All Rights Reserved Reading location - IP/workstation name: [email or web address]
[2018-06-21 10:28] LABS: AMORPHOUS SEDIMENT,URINE TRACE /HPF; APPEARANCE,URINE TURBID; BILIRUBIN,URINE NEGATIVE (NEGATIVE); COLOR,URINE AMBER; GLUCOSE, URINE NEGATIVE (NEGATIVE); KETONES,URINE NEGATIVE (NEGATIVE); LEUKOCYTE ESTERASE,URINE LARGE (NEGATIVE); NITRITE,URINE NEGATIVE (NEGATIVE); PROTEIN,URINE 100 mg/dL (NEGATIVE); URINE SPECIFIC GRAVITY 1.011; UROBILINOGEN,URINE NEGATIVE mg/dL (<2.0)
[2018-06-21 10:31] LABS: ABSOLUTE MONOCYTES (AUTO) 0.3 10^3/uL (0.1-1.4); ABSOLUTE NEUT (AUTO) 5.4 10^3/uL (1.7-8.2); HEMATOCRIT 30.7 % (37.9-51.0); LYMPHOCYTES % (AUTO) 12.2 % (13-45); MEAN CORPUSCULAR HEMOGLOBIN 31.6 pg (27.0-33.4); MEAN CORPUSCULAR HGB CONC 32.5 g/dL (32.0-36.0); MONOCYTES % (AUTO) 4.9 % (3-13); PLATELET COUNT 115 10^3/uL (150-450); RED BLOOD COUNT 3.16 10^6/uL (4.35-5.55); RED CELL DISTRIBUTION WIDTH 24.9 % (11.5-14.0); SEGMENTED NEUTROPHILS % (AUTO) 82.6 % (42-78); WHITE BLOOD COUNT 6.6 10^3/uL (4.0-10.5)
[2018-06-21 10:33] LABS: ALANINE AMINOTRANSFERASE 18 U/L (21-72); ALBUMIN 1.9 g/dL (3.5-5.0); ALKALINE PHOSPHATASE 100 U/L (38-126); ASPARTATE AMINO TRANSFERASE 41 U/L (17-59); BILIRUBIN,DIRECT 0.2 mg/dL (0.0-0.4); BILIRUBIN,TOTAL 0.2 mg/dL (0.2-1.3); BLOOD UREA NITROGEN 14 mg/dL (7-20); CALCIUM 7.7 mg/dL (8.4-10.2); GLUCOSE 197 mg/dL (75-110); MEAN CORPUSCULAR VOLUME 97 fl (80-97); POTASSIUM 3.7 mmol/L (3.6-5.0); TOTAL PROTEIN 4.8 g/dL (6.3-8.2)
[2018-06-21 10:37] LABS: ANISOCYTOSIS 3+; OVALOCYTES SLIGHT; POIKILOCYTOSIS SLIGHT; TARGET CELLS SLIGHT
[2018-06-21 10:38] LABS: CARBON DIOXIDE 30 mmol/L (22-30); CHLORIDE 106 mmol/L (98-107); PLATELET COMMENT DECREASED; SODIUM 137.9 mmol/L (137-145)
[2018-06-21 10:45] LABS: CREATINE KINASE MB 1.03 ng/mL (<4.55)
[2018-06-21 10:49] LABS: TROPONIN I < 0.012 ng/mL
[2018-06-21] MEDS ORDERED: CEFTRIAXONE 1 GM/D5W RTU 1 GM/50 ML RTUPB IV ONE (11:00)
[2018-06-21 11:13] LABS: CREATINE KINASE < 20 U/L (55-170)
[2018-06-21 11:21] LABS: ANION GAP 2 (5-19)
--- NOTE | 2018-06-21 13:35 | EKG REPORT ---
SEVERITY:- ABNORMAL ECG - SINUS RHYTHM FIRST DEGREE AV BLOCK PROBABLE INFERIOR INFARCT, AGE INDETERMINATE CONSIDER ANTEROSEPTAL INFARCT : Confirmed by: Erick Rice 21-Jun-2018 13:34:45
[2018-06-21] MEDS ORDERED: DOXYCYCLINE HYCLATE 100 MG TABLET PO ONE (14:15)
[2018-06-21 14:27] VITALS: BP 136/71
== END 2018-06-21 14:50 | disposition home or self-care (01) ==
LOC: ER 09:35
DX: J18.1 Lobar pneumonia, unspecified organism (principal); N39.0 Urinary tract infection, site not specified; I12.0 Hypertensive chronic kidney disease with stage 5 chronic kidney disease or end stage renal disease; E11.22 Type 2 diabetes mellitus with diabetic chronic kidney disease; E11.649 Type 2 diabetes mellitus with hypoglycemia without coma; Z79.4 Long term (current) use of insulin; N18.6 End stage renal disease; Z99.2 Dependence on renal dialysis; L89.322 Pressure ulcer of left buttock, stage 2; L89.312 Pressure ulcer of right buttock, stage 2; J44.9 Chronic obstructive pulmonary disease, unspecified; R41.82 Altered mental status, unspecified; I25.10 Atherosclerotic heart disease of native coronary artery without angina pectoris; F17.210 Nicotine dependence, cigarettes, uncomplicated; N40.1 Benign prostatic hyperplasia with lower urinary tract symptoms; R33.8 Other retention of urine; R31.9 Hematuria, unspecified; I25.2 Old myocardial infarction
CPT/HCPCS: 93005; 36415; 87040; 87086; 82553; 82962; 82550; 83735; 85025; 80053; 81001; 84484; 82803; 83605; 71045; 93010; J3490; A9270; J0696

== ENCOUNTER 2018-06-22 10:01 | Inpatient (IN) | payer MEDICARE, MEDICAID ==
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
[2018-06-22] MEDS ORDERED: DEXTROSE 50%-WATER 25 GM/50 ML DISP.SYRIN IV ONE ×2 (10:18→15:05)
[2018-06-22] MEDS ORDERED: THIAMINE HCL 100 MG in NORMAL SALINE 50 ML IV ONE (10:25)
[2018-06-22 10:34] LABS: ABSOLUTE LYMPHOCYTES (AUTO) 1.2 10^3/uL (0.5-4.7); ABSOLUTE MONOCYTES (AUTO) 0.3 10^3/uL (0.1-1.4); ABSOLUTE NEUT (AUTO) 7.8 10^3/uL (1.7-8.2); BASOPHILS % (AUTO) 0.4 % (0-2); EOSINOPHILS % (AUTO) 0.4 % (0-6); HEMATOCRIT 37.1 % (37.9-51.0); LYMPHOCYTES % (AUTO) 12.8 % (13-45); MEAN CORPUSCULAR HEMOGLOBIN 31.4 pg (27.0-33.4); MEAN CORPUSCULAR HGB CONC 32.4 g/dL (32.0-36.0); MEAN CORPUSCULAR VOLUME 97 fl (80-97); MONOCYTES % (AUTO) 3.7 % (3-13); PLATELET COUNT 148 10^3/uL (150-450); RED BLOOD COUNT 3.84 10^6/uL (4.35-5.55); RED CELL DISTRIBUTION WIDTH 24.9 % (11.5-14.0); SEGMENTED NEUTROPHILS % (AUTO) 82.7 % (42-78); TOTAL CELLS COUNTED % (AUTO) 100 %; WHITE BLOOD COUNT 9.4 10^3/uL (4.0-10.5)
[2018-06-22 10:54] LABS: ALANINE AMINOTRANSFERASE 16 U/L (21-72); ALBUMIN 2.3 g/dL (3.5-5.0); ALKALINE PHOSPHATASE 114 U/L (38-126); ASPARTATE AMINO TRANSFERASE 51 U/L (17-59); BILIRUBIN,DIRECT 0.3 mg/dL (0.0-0.4); BILIRUBIN,TOTAL 0.3 mg/dL (0.2-1.3); BLOOD UREA NITROGEN 19 mg/dL (7-20); CALCIUM 8.5 mg/dL (8.4-10.2); CARBON DIOXIDE 29 mmol/L (22-30); GLUCOSE 76 mg/dL (75-110)
[2018-06-22 10:55] LABS: CREATINE KINASE < 20 U/L (55-170)
[2018-06-22 10:59] LABS: CHLORIDE 106 mmol/L (98-107); SODIUM 139.2 mmol/L (137-145)
--- NOTE | 2018-06-22 10:59 | RADIOLOGY REPORT (SQ) ---
EXAM DESCRIPTION: CHEST SINGLE VIEW COMPLETED DATE/TIME: 06/22/2018 10:41 am REASON FOR STUDY: F/U CXR abnormal 06/21/18, hypoglycemia COMPARISON: 06/21/2018. EXAM PARAMETERS: NUMBER OF VIEWS: One view. TECHNIQUE: Single frontal radiographic view of the chest acquired. RADIATION DOSE: NA LIMITATIONS: None. FINDINGS: LUNGS AND PLEURA: There has been resolution of left lower lobe infiltrate or atelectasis. The left hemidiaphragm is not better visualized. There are vague ground-glass type densities noted over the right mid and lower lung field. The possibility of artifact rather developing infiltrate is a considerations. MEDIASTINUM AND HILAR STRUCTURES: No masses. Contour normal. HEART AND VASCULAR STRUCTURES: Heart normal in size. Normal vasculature. BONES: No acute findings. HARDWARE: None in the chest. OTHER: Dual lumen catheter overlying right atrium. Chest leads in place. IMPRESSION: Interval resolution of left basilar atelectasis. Possible early infiltrate right mid an d lower lung field. See above. TECHNICAL DOCUMENTATION: JOB ID: [id number] [employer])- All Rights Reserved Reading location - IP/workstation name: [email or web address]
[2018-06-22] MEDS ORDERED: THIAMINE HCL INJ 200 MG/2 ML VIAL IV ONE (11:00)
[2018-06-22 11:01] LABS: ANION GAP 4 (5-19)
[2018-06-22 11:05] LABS: ANISOCYTOSIS 3+; HYPOCHROMASIA SLIGHT; OVALOCYTES SLIGHT; PLATELET COMMENT ADEQUATE; POIKILOCYTOSIS 1+; POLYCHROMASIA 1+; SCHISTOCYTES SLIGHT; TOXIC GRANULATION SLIGHT
[2018-06-22 11:06] LABS: CREATINE KINASE MB 1.04 ng/mL (<4.55); TROPONIN I < 0.012 ng/mL
[2018-06-22] MEDS ORDERED: ACETAMINOPHEN 325 MG TABLET PO PRN (16:35)
[2018-06-22] MEDS ORDERED: PROMETHAZINE HCL 25 MG TABLET PO PRN (16:35)
[2018-06-22] MEDS ORDERED: IPRATROPIUM/ALBUTEROL 0.5-2.5 MG/3 ML AMPUL NEB PRN (16:35)
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
[2018-06-22] MEDS ORDERED: DEXTROSE 50%-WATER 25 GM/50 ML DISP.SYRIN IV PRN ×2 (16:50)
[2018-06-22] MEDS ORDERED: INSULIN LISPRO 100 UNIT/ML 3 ML VIAL SUBCUT PRN (16:50)
[2018-06-22] MEDS ORDERED: GLUCAGON,HUMAN RECOMB 1 MG INJ IM PRN (16:50)
[2018-06-22] MEDS ORDERED: DEXTROSE 40% GEL 15 GM TUBE PO PRN ×2 (16:50)
[2018-06-22 17:35] LABS: ABSOLUTE EOSINOPHILS # (AUTO) 0.1 10^3/uL (0.0-0.6); ABSOLUTE MONOCYTES (AUTO) 0.5 10^3/uL (0.1-1.4); ABSOLUTE NEUT (AUTO) 6.6 10^3/uL (1.7-8.2); BASOPHILS % (AUTO) 0.3 % (0-2); HEMATOCRIT 35.8 % (37.9-51.0); HEMOGLOBIN 11.7 g/dL (13.5-17.0); LYMPHOCYTES % (AUTO) 21.5 % (13-45); MEAN CORPUSCULAR HEMOGLOBIN 31.4 pg (27.0-33.4); MEAN CORPUSCULAR HGB CONC 32.6 g/dL (32.0-36.0); MEAN CORPUSCULAR VOLUME 96 fl (80-97); MONOCYTES % (AUTO) 5.9 % (3-13); PLATELET COUNT 142 10^3/uL (150-450); RED BLOOD COUNT 3.72 10^6/uL (4.35-5.55); RED CELL DISTRIBUTION WIDTH 24.9 % (11.5-14.0); SEGMENTED NEUTROPHILS % (AUTO) 71.3 % (42-78); TOTAL CELLS COUNTED % (AUTO) 100 %; WHITE BLOOD COUNT 9.2 10^3/uL (4.0-10.5)
[2018-06-22 17:58] LABS: POLYCHROMASIA SLIGHT; TOXIC GRANULATION 1+; TOXIC VACUOLATION PRESENT
[2018-06-22 17:59] LABS: ANISOCYTOSIS 3+; OVALOCYTES SLIGHT; PLATELET COMMENT DECREASED; PLATELET LARGE PRESENT; POIKILOCYTOSIS SLIGHT
[2018-06-22 23:31] LABS: APPEARANCE,URINE CLOUDY; BILIRUBIN,URINE NEGATIVE (NEGATIVE); GLUCOSE, URINE 50 mg/dL (NEGATIVE); KETONES,URINE NEGATIVE (NEGATIVE); LEUKOCYTE ESTERASE,URINE LARGE (NEGATIVE); NITRITE,URINE NEGATIVE (NEGATIVE); PROTEIN,URINE >=500 mg/dL (NEGATIVE); UROBILINOGEN,URINE NEGATIVE mg/dL (<2.0)
[2018-06-22 23:35] LABS: COLOR,URINE RED
[2018-06-23] MEDS: LANSOPRAZOLE 30 MG TAB.RAP.DR PO SCH (05:36)
[2018-06-23 08:33] LABS: HEMATOCRIT 32.5 % (37.9-51.0); HEMOGLOBIN 10.7 g/dL (13.5-17.0); MEAN CORPUSCULAR HEMOGLOBIN 31.6 pg (27.0-33.4); MEAN CORPUSCULAR HGB CONC 32.8 g/dL (32.0-36.0); MEAN CORPUSCULAR VOLUME 96 fl (80-97); PLATELET COUNT 129 10^3/uL (150-450); RED BLOOD COUNT 3.38 10^6/uL (4.35-5.55); RED CELL DISTRIBUTION WIDTH 24.2 % (11.5-14.0); WHITE BLOOD COUNT 8.8 10^3/uL (4.0-10.5)
[2018-06-23 08:43] LABS: ALBUMIN 1.9 g/dL (3.5-5.0); ANION GAP 5 (5-19); BLOOD UREA NITROGEN 21 mg/dL (7-20); CALCIUM 8.3 mg/dL (8.4-10.2); CARBON DIOXIDE 27 mmol/L (22-30); CHLORIDE 109 mmol/L (98-107); GLUCOSE 85 mg/dL (75-110); PHOSPHORUS 3.9 mg/dL (2.5-4.5); POTASSIUM 3.7 mmol/L (3.6-5.0); SODIUM 140.7 mmol/L (137-145)
[2018-06-23] MEDS: LISINOPRIL 10 MG TABLET PO SCH (09:07)
[2018-06-23] MEDS: CITALOPRAM HYDROBROMIDE 20 MG TABLET PO SCH (09:07)
[2018-06-23] MEDS: FOLIC ACID 1 MG TABLET PO SCH (09:07)
[2018-06-23] MEDS: THIAMINE HCL 100 MG TABLET PO SCH (09:07)
[2018-06-23] MEDS: TAMSULOSIN HCL 0.4 MG CAP.SR.24H PO SCH (09:07)
[2018-06-23] MEDS ORDERED: ENOXAPARIN SODIUM INJ 30 MG/0.3 ML DISP.SYRIN SUBCUT SCH (10:00)
[2018-06-23] MEDS ORDERED: SEVELAMER CARBONATE PO SCH (10:00)
[2018-06-23] MEDS: FUROSEMIDE 40 MG TABLET PO SCH (19:08)
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
[2018-06-23 21:39] LABS: ALANINE AMINOTRANSFERASE 18 U/L (21-72); ALKALINE PHOSPHATASE 112 U/L (38-126); ASPARTATE AMINO TRANSFERASE 46 U/L (17-59); BILIRUBIN,DIRECT 0.3 mg/dL (0.0-0.4); BILIRUBIN,TOTAL 0.3 mg/dL (0.2-1.3); BLOOD UREA NITROGEN 13 mg/dL (7-20); CALCIUM 7.8 mg/dL (8.4-10.2); CARBON DIOXIDE 28 mmol/L (22-30); CHLORIDE 107 mmol/L (98-107); GLUCOSE 116 mg/dL (75-110); POTASSIUM 3.6 mmol/L (3.6-5.0)
[2018-06-23 21:46] LABS: SODIUM 137.6 mmol/L (137-145)
[2018-06-23 21:48] LABS: ANION GAP 3 (5-19)
[2018-06-23 21:50] LABS: CREATININE 2.38 mg/dL (0.52-1.25)
[2018-06-23 21:51] LABS: URINE CREATININE 9.1 mg/dL (22-328)
[2018-06-24] MEDS: LANSOPRAZOLE 30 MG TAB.RAP.DR PO SCH (05:31)
[2018-06-24 06:44] LABS: ANION GAP 5 (5-19); BLOOD UREA NITROGEN 16 mg/dL (7-20); CALCIUM 7.9 mg/dL (8.4-10.2); CARBON DIOXIDE 28 mmol/L (22-30); CHLORIDE 108 mmol/L (98-107); GLUCOSE 94 mg/dL (75-110); PHOSPHORUS 3.3 mg/dL (2.5-4.5); POTASSIUM 3.6 mmol/L (3.6-5.0); SODIUM 140.8 mmol/L (137-145)
[2018-06-24] MEDS: CITALOPRAM HYDROBROMIDE 20 MG TABLET PO SCH (09:31)
[2018-06-24] MEDS: TAMSULOSIN HCL 0.4 MG CAP.SR.24H PO SCH (09:32)
[2018-06-24] MEDS: FOLIC ACID 1 MG TABLET PO SCH (09:33)
[2018-06-24] MEDS: FUROSEMIDE 40 MG TABLET PO SCH (09:33)
[2018-06-24] MEDS: LISINOPRIL 10 MG TABLET PO SCH (09:34)
[2018-06-24] MEDS: THIAMINE HCL 100 MG TABLET PO SCH (09:34)
[2018-06-24 10:26] LABS: URINE CREATININE 8.3 mg/dL (22-328)
--- NOTE | 2018-06-24 12:01 | RADIOLOGY REPORT (SQ) ---
EXAM DESCRIPTION: U/S RETROPERITON (RENAL/AORTA) COMPLETED DATE/TIME: 06/24/2018 9:25 am REASON FOR STUDY: Urine retention COMPARISON: None. TECHNIQUE: Dynamic and static grayscale images acquired of the kidneys and bladder and recorded on P ACS. Additional selected color Doppler and spectral images recorded. LIMITATIONS: None. FINDINGS: RIGHT KIDNEY: 10.4 cm Increased cortical echogenicity. No solid or suspicious masses. No hydronephrosis. No calcifications. LEFT KIDNEY: 8.3 cm Increased cortical echogenicity. No solid or suspicious masses. Dilated re nal pelvis 13 mm. No calcifications. BLADDER: Symmetric thickening of the bladder wall. Overton catheter. OTHER: No other significant finding. IMPRESSION: Chronic medical renal disease. Left hydronephrosis. TECHNICAL DOCUMENTATION: JOB ID: [id number] [employer]- All Rights Reserved Reading location - IP/workstation name: [email or web address]
[2018-06-24 12:46] LABS: UR PRO/CREAT RATIO RESULT 117.7 mg/mg (0.0-0.2); URINE PROTEIN 976.9 mg/dL (<12)
[2018-06-24 16:02] VITALS: BP 146/66
[2018-06-24] MEDS ORDERED: SEVELAMER HCL 800 MG TABLET PO SCH (17:00)
--- NOTE | 2018-06-27 20:51 | PDOC DISCHARGE SUMMARY ---
General - Admit/Disc Date/PCP Admission Date/Primary Care Provider: 06/22/18 15:40 JEANNE WEBER Discharge Date: 06/24/18 - Additional Information Resuscitation Status: Do Not Intubate Prescriptions: Insulin Lispro [Humalog Insulin (Lispro) 100 unit/mL] 0 - 12 unit SUBCUT ACHSP PRN 30 Days #100 unit PRN Reason: Home Medications: Citalopram Hydrobromide [Celexa 10 mg Tablet] 10 mg PO DAILY 06/23/18 Folic Acid [Folvite 1 mg Tablet] 1 mg PO DAILY 06/23/18 Oxybutynin Chloride [Ditropan 5 mg Tablet] 5 mg PO TID 06/23/18 Pantoprazole Sodium [Protonix] 40 mg PO DAILY 06/23/18 Sevelamer Carbonate [Renvela] 800 mg PO MEALS 06/23/18 Tamsulosin HCl [Flomax 0.4 mg Cap.sr] 0.4 mg PO QHS 06/23/18 Acetaminophen [Tylenol 325 mg Tablet] 650 mg PO Q4HP PRN tablet 06/24/18 Glucagon,Human Recombinant [Glucagen Inj 1 mg Vial] 1 mg IM PRN PRN vial 06/24/18 Insulin Lispro [Humalog Insulin (Lispro) 100 unit/mL] 0 - 12 unit SUBCUT ACHSP PRN 30 Days #100 unit 06/24/18 History of Present Illness History of Present Illness: Patient was admitted after presentation as in HPI below: "CHIKA TELLES is a 67 year old male please also see records from the emergency department on June 21, 2018. The patient is a poor historian. He states that he went to the emergency room yesterday because he was feeling weak. He went home and felt a little better but was still weak and returned. When EMS presented to the house the patient's fingerstick glucose was 16. He was given D10 with a good response. However his sugar decreased again by the time he got to the emergency department. He was given 2 boluses of D50 and had 2 cans of soup. He reports that he is feeling better however he still feels quite weak. There is a history of noncompliance with medications and there is a question of appropriate dosing of medications at home. The patient has end-stage renal disease on hemodialysis with a history of hypertension, myocardial infarction and chronic obstructive pulmonary disease. He is a current smoker." Hospital Course Hospital Course: Patient was admitted. It was thought his was receiving too much insulin. He was placed on sliding scale insulin. He did not require any insulin during hospitalization. He ate well. I believe that given patient's end-stage renal disease, he may not need much more insulin. His Lantus was discontinued and he was placed on just sliding scale insulin. Case was also referred to APS to ensure patient not getting appropriate dose of medication. Patient was of mild possible halfway facility to better manage his medication, but he wanted to go home. He is being discharged in stable condition. APS to continue to f ollow patient. Pt to f/u with pcp within 1 week. Physical Exam Vital Signs: Temp Pulse Resp BP Pulse Ox 97.8 F 63 16 148/65 H 99 06/24/18 07:39 06/24/18 10:00 06/24/18 10:00 06/24/18 07:39 06/24/18 07:39 Intake & Output 06/23/18 06/24/18 06/25/18 06:59 06:59 06:59 Intake Total 300 Output Total 500 751 Balance -500 -451 Weight 52.3 kg 51.9 kg General appearance: PRESENT: no acute distress, thin, well-developed Head exam: PRESENT: normocephalic Respiratory exam: PRESENT: clear to auscultation roxane, symmetrical, unlabored. ABSENT: rales, rhonchi, stridor, wheezes Cardiovascular exam: PRESENT: RRR, +S1, +S2 GI/Abdominal exam: PRESENT: normal bowel sounds, soft. ABSENT: tenderness Extremities exam: PRESENT: pedal edema Neurological exam: PRESENT: alert, awake, oriented to person, oriented to place Psychiatric exam: PRESENT: normal affect. ABSENT: agitated, anxious Results Laboratory Results: 06/23/18 04:59 06/24/18 05:35 06/23/18 06/23/18 06/24/18 18:00 21:14 05:35 Sodium 137.6 140.8 Potassium 3.6 3.6 Chloride 107 108 H Carbon Dioxide 28 28 Anion Gap 3 L 5 BUN 13 16 Creatinine 2.38 H 2.38 H 2.99 H Est GFR ( Amer) 33 L 25 L Est GFR (Non-Af Amer) 27 L 21 L Glucose 116 H 94 Calcium 7.8 L 7.9 L Phosphorus 3.3 Magnesium 2.0 Total Bilirubin 0.3 AST 46 ALT 18 L Alkaline Phosphatase 112 Total Protein 5.0 L Albumin 2.0 L PTH Intact Ur 24 Hour Volume 30 06/24/18 05:35 Sodium Potassium Chloride Carbon Dioxide Anion Gap BUN Creatinine Est GFR ( Amer) Est GFR (Non-Af Amer) Glucose Calcium Phosphorus Magnesium Total Bilirubin AST ALT Alkaline Phosphatase Total Protein Albumin PTH Intact 39.5 Ur 24 Hour Volume 06/22/18 06/22/18 10:20 10:20 Creatine Kinase < 20 L CK-MB (CK-2) 1.04 Troponin I < 0.012 Impressions: Chest X-Ray 06/22/18 10:26 IMPRESSION: Interval resolution of left basilar atelectasis. Possible early infiltrate right mid and lower lung field. See above. Qualifiers - * PATIENT BEING DISCHARGED WITH ANY OF THE FOLLOWING DIAGNOSIS: No
== END 2018-06-24 16:58 | disposition home or self-care (01) | DRG 917 ==
LOC: ER 10:01 → EH 15:40 → 3S 16:36
PROVIDERS: ADMIT Hospitalist; ATTEND Hospitalist
PROC: 5A1D70Z Performance of Urinary Filtration, Intermittent, Less than 6 Hours Per Day (ICD-10-PCS; principal; 2018-06-23)
DX: T38.3X1A Poisoning by insulin and oral hypoglycemic [antidiabetic] drugs, accidental (unintentional), initial encounter (principal); N18.6 End stage renal disease; Z68.1 Body mass index [BMI] 19.9 or less, adult; E11.649 Type 2 diabetes mellitus with hypoglycemia without coma; E11.22 Type 2 diabetes mellitus with diabetic chronic kidney disease; I25.10 Atherosclerotic heart disease of native coronary artery without angina pectoris; J44.9 Chronic obstructive pulmonary disease, unspecified; N40.0 Benign prostatic hyperplasia without lower urinary tract symptoms; R62.7 Adult failure to thrive; F17.210 Nicotine dependence, cigarettes, uncomplicated; Y92.098 Other place in other non-institutional residence as the place of occurrence of the external cause; Z79.4 Long term (current) use of insulin; Z79.899 Other long term (current) drug therapy; Z91.14 Patient's other noncompliance with medication regimen
CPT/HCPCS: 36415; 71045; 76770; 80048; 80053; 80069; 81001; 82550; 82553; 82570; 82575; 82803; 82962; 83036; 83605; 83735; 83970; 84100; 84156; 84443; 84484; 85025; 85027; 87040; 87086; 93005; 93010; 96365; 96375; 96376; 99291; G8978-GP; G8979-GP; J3411; J3490

== ENCOUNTER → 2018-07-06 | Day surgery (SDC) | payer MEDICARE, MEDICAID ==
[~2018-07-06] MED LIST changes: -BACITRACIN INJ 50,000 UNIT VIAL ONE; -BUPIVACAINE HCL 0.25 % INJ/PF (2.5 MG/1 ML) 30 ML VIAL ONE; -BUPIVACAINE HCL 0.5 % INJ/PF 30 ML SDV ONE; +DIAZEPAM 5 MG TABLET PO PRN; -HEPARIN SODIUM,PORCINE/NS/PF 0 UNIT/0 ML RTUINJ IV ONE; -LIDOCAINE 0.5% INJ-PF (5 MG/ML) 50 ML SDV ONE; +OXYCODONE-ACETAMINOPHEN 5-325 MG TABLET PO PRN
[2018-07-06 09:31] VITALS: BP 155/87
== END ==
LOC: CCL 08:40
PROVIDERS: ATTEND Surgery
DX: T82.858A Stenosis of other vascular prosthetic devices, implants and grafts, initial encounter (principal); Y83.2 Surgical operation with anastomosis, bypass or graft as the cause of abnormal reaction of the patient, or of later complication, without mention of misadventure at the time of the procedure; Z01.818 Encounter for other preprocedural examination

== ENCOUNTER 2018-07-19 17:19 | Observation (INO) | payer MEDICARE, MEDICAID ==
--- NOTE | 2018-07-19 18:22 | RADIOLOGY REPORT (SQ) ---
EXAM DESCRIPTION: CHEST SINGLE VIEW COMPLETED DATE/TIME: 07/19/2018 6:14 pm REASON FOR STUDY: R/O VA COMPARISON: 06/22/2018 EXAM PARAMETERS: NUMBER OF VIEWS: One view. TECHNIQUE: Single frontal radiographic view of the chest acquired. RADIATION DOSE: NA LIMITATIONS: None. FINDINGS: LUNGS AND PLEURA: No opacities, masses or pneumothorax. No pleural effusion. MEDIASTINUM AND HILAR STRUCTURES: No masses. Contour normal. HEART AND VASCULAR STRUCTURES: Heart normal in size. Normal vasculature. BONES: No acute findings. HARDWARE: A dual-lumen catheter is present on the right. OTHER: No other significant finding. IMPRESSION: NO ACUTE RADIOGRAPHIC FINDING IN THE CHEST. TECHNICAL DOCUMENTATION: JOB ID: [id number] [employer]- All Rights Reserved Reading location - IP/workstation name: [place]
[2018-07-19 18:34] LABS: ABSOLUTE EOSINOPHILS # (AUTO) 0.2 10^3/uL (0.0-0.6); ABSOLUTE LYMPHOCYTES (AUTO) 2.1 10^3/uL (0.5-4.7); ABSOLUTE MONOCYTES (AUTO) 0.5 10^3/uL (0.1-1.4); ABSOLUTE NEUT (AUTO) 5.9 10^3/uL (1.7-8.2); BASOPHILS % (AUTO) 0.3 % (0-2); EOSINOPHILS % (AUTO) 1.8 % (0-6); HEMATOCRIT 35.4 % (37.9-51.0); HEMOGLOBIN 11.6 g/dL (13.5-17.0); MEAN CORPUSCULAR HEMOGLOBIN 31.4 pg (27.0-33.4); MEAN CORPUSCULAR HGB CONC 32.7 g/dL (32.0-36.0); MEAN CORPUSCULAR VOLUME 96 fl (80-97); MONOCYTES % (AUTO) 5.3 % (3-13); PLATELET COUNT 133 10^3/uL (150-450); RED BLOOD COUNT 3.69 10^6/uL (4.35-5.55); RED CELL DISTRIBUTION WIDTH 17.7 % (11.5-14.0); SEGMENTED NEUTROPHILS % (AUTO) 68.6 % (42-78); TOTAL CELLS COUNTED % (AUTO) 100 %; WHITE BLOOD COUNT 8.6 10^3/uL (4.0-10.5)
--- NOTE | 2018-07-19 18:38 | EKG REPORT ---
SEVERITY:- ABNORMAL ECG - SINUS RHYTHM FIRST DEGREE AV BLOCK LOW VOLTAGE IN FRONTAL LEADS CONSIDER INFERIOR INFARCT CONSIDER ANTEROSEPTAL INFARCT : Confirmed by: Melony Bailey MD 19-Jul-2018 18:36:54
[2018-07-19 18:54] LABS: ANION GAP 6 (5-19); BLOOD UREA NITROGEN 16 mg/dL (7-20); CARBON DIOXIDE 30 mmol/L (22-30); CHLORIDE 102 mmol/L (98-107); GLUCOSE 178 mg/dL (75-110); SODIUM 137.7 mmol/L (137-145)
[2018-07-19 18:55] LABS: CREATINE KINASE < 20 U/L (55-170)
[2018-07-19 19:10] LABS: TROPONIN I < 0.012 ng/mL
--- NOTE | 2018-07-19 23:37 | PDOC CONSULTATION ---
Consultation-Blank Consultation: CARDIOLOGY CONSULTATION done by Dr. Melony Bailey on 07/19/2018. Patient seen at 8:30 PM on 07/19/2018. 60 minutes spent on this patient with more than 50% time spent in direct patient care. REASON FOR CONSULTATION: Preoperative cardiac risk assessment for AV fistula surgery. HISTORY PRESENT ILLNESS: Note both the patient and are not very good historians. Patient is a 67-year-old male who has end-stage renal disease disease on hemodialysis, admitted for AV fistula placement surgery. He states that he had a heart attack in 2016, but has not had any cardiac catheterizations. He has not had any anginal symptoms then since then. He has a history of hypertension, but states that at times his blood pressure is low and has not been able to take his lisinopril. He has a history of diabetes mellitus type 2 insulin-dependent. He denies any chest pain or discomfort. There is no PND orthopnea. There is no cough or sputum production or wheezing. There is no TIA CVA symptoms. As per the patient is not very active. PAST MEDICAL HISTORY: Coronary artery disease history of [place] in 2016. Details of this are not very well known, and the patient and the are not able to offer much in the way of history about this. He has no anginal symptoms. He denies any history of congestive heart failure. There is no history of palpitations or cardiac arrhythmia. He has a history of hypertension, and at present at times he states his blood pressure is low but he does not have to omit taking his lisinopril. The also notes that the patient is a wide pulse pressure. He has no history of rheumatic fever or congenital heart disease. He has no history of cardiac arrhythmia. He denies any shortness of breath, cough or wheezing. There is no PND orthopnea. There is no history of TIA or CVA. He has unintentional weight loss. The patient appears to be chronically ill, ill nourished, but in no acute distress at present. He has no history of thyroid disease. No history of TIA CVA. He has a history of depression. He has a history of end-stage renal disease on hemodialysis. He states that he does make some urine, but has urinary incontinence. He also has history of enlarged prostate and is on Flomax for this. He has a past history of GI bleed from peptic ulcer disease. No recent symptoms of GERD or peptic ulcer symptoms. Although he smokes he denies any history of asthma or COPD. PAST SURGICAL HISTORY: History of permacath placement in the right IJ. SOCIAL HISTORY: The patient is a smoker. There is no history of EtOH abuse. FAMILY HISTORY: States that his father of lead poisoning. There is no history of coronary artery disease in the family. DISPOSITION: The patient is a full code. His is a surrogate healthcare decision maker. ALLERGIES: He has no known allergies. REVIEW OF SYSTEMS: CONSTITUTIONAL: Denies any fever chills or rigors. Come planes of generalized fatigue and weakness. HEAD: Denies headaches or head injury. EYES: No history of amblyopia diplopia. No history of amaurosis fugax. EARS: No history of tinnitus. No history of vertigo. No history of hearing loss. NOSE: No history of hayfever. No history of nosebleeds. MOUTH: No history of altered taste sensation. No history of ulcers in the mouth. No his tory of bleeding from the gums. THROAT: No history of odynophagia or dysphagia. No history of recurrent sore throats. SKIN: No history of pruritus. No history of yellowish discoloration of the skin. No history of skin cancer. No history of psoriasis. NECK: Denies any neck pain or swelling in the neck. LUNGS: The patient is a smoker, but denies any history of asthma or COPD. No cough or sputum production or wheezing. No history of pulmonary embolism. No history of pleuritic chest pain. No history of hemoptysis. No history of sleep apnea. No symptoms of upper or lower respiratory tract infections. HEART: History of coronary artery disease, history of myocardial infarction 2016. No anginal symptoms. Denies history of congestive heart failure. Denies any palpitations or any cardiac arrhythmia. No history of presyncope or syncope. Note denies any history of PND orthopnea or leg edema. No history of sudden . History of hypertension, at times the patient states he is not able to take medication due to low blood pressure. GI: Past history of peptic ulcer disease with GI bleed. No recent symptoms of GERD or peptic ulcer disease. No recent GI bleed. No history of fatty food intolerance. History of decreased appetite present. History of unintentional weight loss present. No altered bowel movements. No abdominal pain. RENAL: History of end-stage renal disease on hemodialysis. The patient is for AV fistula. Placement. He has a permacath in the light right chest/IJ area. ENDOCRINE: Past history of diabetes mellitus type 2 insulin-dependent.Not a diabetic any more. No history of polydipsia polyuria. No history of heat or cold intolerance. No history of thyroid disease. MUSCULOSKELETAL: Denies arthritis or collagen vascular disease. 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 No history of headaches migraines or seizures. PSYCHIATRIC: History of depression, well controlled with medication. No history of suicidal ideation. No history of homicidal ideation. VASCULAR: No history of calf or buttock claudication. No history of DVT. HEMATOLOGICAL: No history of blood dyscrasias. No history of clotting disorders. PHYSICAL EXAMINATION: The patient is a frail build, and appears chronically ill. He appears older than his stated age. He is in no acute distress. Selected Entries 07/19/18 07/19/18 17:37 20:16 Temperature 97.5 F 97.6 F Temperature Oral Oral Source Pulse Rate 67 68 Respiratory 16 14 Rate Blood Pressure 115/57 L 164/69 H Blood Pressure 76 100 Mean BP Location Right Arm Left Arm BP Position Sitting Supine O2 Sat by Pulse 94 Oximetry Oxygen Delivery Room Air Room Air Method HEAD: Head is atraumatic normocephalic. EYES: Pupils are equal round regular reactive to light accommodation. Extraocular movements are normal. There is no conjunctival pallor. There is no scleral icterus. EARS: There is no lesions on the P&A. External auditory canals are clear. Tympanic membranes are intact. NOSE: There is no deviated nasal septum. There is no inflammation of the nasal mucous membrane. There is no nasal polyps. MOUTH: Mucous membranes of mouth are moist. Tongue is moist. There is no ulcers in the mouth. There is no bleeding from the gums. THROAT: There is no redness of the oropharynx. There is no exudates. SKIN: There is no petechia or ecchymosis. There is no skin rashes or skin lesions. NECK: Is supple. There is no JVD. Carotids are equal there is no bruit. There is no lymphadenopathy there is no goiter. There is no accessory muscle respiration use. Trachea central. LUNGS: Is clear to auscultation percussion, without any rhonchi rales or wheezing. There is no chest wall tenderness. HEART: S1-S2 is heard. S1 is of normal intensity. There is no S3 gallop. There is no S4 gallop. There is systolic murmur left sternal border and the apex there is no rub. ABDOMEN: Is soft. Nontender. There is no hepatosplenomegaly. Bowel sounds are well heard. There is no tender areas of masses. There is no rebound guarding or rigidity. EXTREMITIES: Murmurs are diminished there is no femoral bruits leg pulses are diminished. There is no DVT or cellulitis. There is no pedal edema. There is no cyanosis or clubbing. Capillary refill is normal. 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 PSYCHIATRIC: The patient judgment and insight are intact his affect is normal. 07/19/18 07/19/18 07/19/18 18:10 18:10 18:10 WBC 8.6 RBC 3.69 L Hgb 11.6 L Hct 35.4 L MCV 96 MCH 31.4 MCHC 32.7 RDW 17.7 H Plt Count 133 L Seg Neutrophils % 68.6 Lymphocytes % 24.0 Monocytes % 5.3 Eosinophils % 1.8 Basophils % 0.3 Absolute Neutrophils 5.9 Absolute Lymphocytes 2.1 Absolute Monocytes 0.5 Absolute Eosinophils 0.2 Absolute Basophils 0.0 Sodium 137.7 Potassium 4.0 Chloride 102 Carbon Dioxide 30 Anion Gap 6 BUN 16 Creatinine 2.00 H Est GFR (Non-Af Amer) 33 L Glucose 178 H Calcium 8.0 L Creatine Kinase < 20 L CK-MB (CK-2) 1.10 Troponin I < 0.012 Home Meds Table Citalopram Hydrobromide [Celexa 10 mg Tablet] 10 mg PO DAILY 07/19/18 Folic Acid [Folvite 1 mg Tablet] 1 mg PO DAILY 07/19/18 Insulin Glargine,Hum.rec.anlog [Lantus Insulin 100 Unit/1 ml 10 ml] 16 unit SUBCUT DAILY 07/19/18 Lisinopril [Prinivil 10 mg Tablet] 10 mg PO DAILY 07/19/18 Oxybutynin Chloride [Ditropan 5 mg Tablet] 5 mg PO TID 07/19/18 Pantoprazole Sodium [Protonix] 40 mg PO BID 07/19/18 Tamsulosin HCl [Flomax] 0.4 mg PO DAILY 07/19/18 Vitamin B Complex [B Complex] 1 each PO DAILY 07/19/18 CHEST X-ray is negative for any acute process. EKG: Sinus rhythm first-degree AV block. Left axis deviation. Old inferior wall [place] versus left anterior fascicle block. Poor R wave progression over the anterior leads, is more consistent with the early RS transition rather than the old anteroseptal [place]. IMPRESSION/RECOMMENDATION: 1. End-stage renal disease on hemodialysis. 2. CORONARY artery disease: History of old myocardial infarction. No recent anginal symptoms. 3.History of hypertension. Continue the patient's lisinopril as per blood pressure. 4.History of Diabetes mellitus type 2 insulin-dependent: As per he is not a diabetic anymore.Monitor blood sugars. 5. SYSTOLIC MURMUR: We will get an echo to assess this, wall motion abnormality and also for the LV ejection fraction. 6. Patient for AV fistula placement surgery. 7. Preoperative cardiac risk assessment. 8. History of depression. Continue his antidepressant 9. Past history of peptic ulcer disease and GI bleed. No recent recurrence. Will closely observe the patient. Consider proton pump inhibitors prophylactically. 10. History of tobacco abuse. Tobacco cessation counseling done. 3 minutes spent on this. Ill effects of tobacco has been discussed with the patient in detail. 11. Malnourished state. Patient's medications have been reviewed. Will discuss the management plan with the Dr. Hong Pressley that attending physician on the case. Will check an echo. If the echo does not show any major pathology, then the patient would be an acceptable risk for the surgical procedure. Postoperatively we will monitor the patient's heart rhythm, and get serial EKGs and enzymes. Medical decision making is of high complexity. 60 minutes spent on this patient more than 50% of time spent in direct patient care. Await performance of echocardiogram, will reviewed as soon as it is done.
[2018-07-20 00:27] LABS: CREATINE KINASE MB 1.02 ng/mL (<4.55)
[2018-07-20 00:31] LABS: TROPONIN I < 0.012 ng/mL
[2018-07-20 07:02] LABS: CREATINE KINASE MB 0.85 ng/mL (<4.55); TROPONIN I 0.013 ng/mL
--- NOTE | 2018-07-20 10:25 | XCELERA REPORT ---
[address] [address] Transthoracic Echocardiogram Report Name: SHANIQUACHIKA BULLOCK Age: 67 yrs Gender: Male : 1950 Patient Status: Inpatient Patient Location: [address] [place] [address] Study Date: 07/20/2018 09:53 AM Procedure: A two-dimensional transthoracic echocardiogram with color flow and Doppler was performed. Images were not obtained from all of the standard acoustic windows due to the limited scope of the study. Reason For Study: R/O MT History: Murmur / OLD MT /Pre-op. Ordering Physician: TATYANA ARELLANO Performed By: Stacey Sullivan Interpretation Summary A two-dimensional transthoracic echocardiogram with color flow and Doppler was performed. Images were not obtained from all of the standard acoustic windows due to the limited scope of the study. The left ventricle is normal in size. No True apical 2 chamber views obtained.Hence cannot comment on the apical anterior , the basal anterior, the basal inferior and apical inferior adames.The mid anterior , the mid inferior and the rest of the LV adames contract normally. .Normal LVEF is normal and is greater than 60% in the limited views. Doppler measurements suggest impaired left ventricular relaxation, which is associated with grade I/IV or mild diastolic dysfunction There is no thrombus. The right ventricle is normal in size and function. The right atrium is normal in size The left atrium is mildly dilated. There is no evidence of mitral valve prolapse. There is no vegetation seen on the mitral valve. There is no mitral valve stenosis. There is a trace amount of mitral regurgitation There is no aortic valvular vegetation. There is no aortic valve stenosis There is no LVOT obstruction. There is a trace amount of aortic regurgitation There is no tricuspid stenosis. There is a mild amount of tricuspid regurgitation There is mild pulmonary hypertension by echo RVSP is 37 mm of Hg , with RA mean of 10. There is no pulmonic valvular stenosis. There is a trace amount of pulmonic regurgitation There is no pericardial effusion. MMode/2D Measurements & Calculations RVDd: 3.0 cm LVIDd: 4.8 cm FS: 32.4 % Ao root diam: 3.5 cm IVSd: 1.2 cm LVIDs: 3.2 cm EDV(Teich): 105.5 ml Ao root area: 9.8 cm2 LVPWd: 1.2 cm ESV(Teich): 41.5 ml EF(Teich): 60.7 % Doppler Measurements & Calculations MV E max amalia: MV dec slope: Ao V2 max: LV V1 max P.3 cm/sec 88.2 cm/sec 1.5 mmHg MV A max amalia: 211.3 cm/sec2 Ao max P.1 mmHgLV V1 max: 70.4 cm/sec MV dec time: 0.23 sec 61.1 cm/sec MV E/A: 0.69 PA V2 max: PI max amalia: TR max amalia: 78.1 cm/sec 183.3 cm/sec 262.0 cm/sec PA max P.4 mmHg PI max P.4 mmHg TR max PG: PI dec slope: 27.5 mmHg 234.8 cm/sec2 Left Ventricle The left ventricle is normal in size. There is mild concentric left ventricular hypertrophy. No True apical 2 chamber views obtained.Hence cannot comment on the apical anterior , the basal anterior, the basal inferior and apical inferior adames.The mid anterior , the mid inferior and the rest of the LV adames contract normally. .Normal LVEF is normal and is greater than 60% in the limited views. Doppler measurements suggest impaired left ventricular relaxation, which is associated with grade I/IV or mild diastolic dysfunction. There is no thrombus. Right Ventricle The right ventricle is normal in size and function. Atria The right atrium is normal in size. The left atrium is mildly dilated. Mitral Valve There is no evidence of mitral valve prolapse. There is no vegetation seen on the mitral valve. There is no mitral valve stenosis. There is a trace amount of mitral regurgitation. Aortic Valve There is no aortic valvular vegetation. There is no aortic valve stenosis. There is no LVOT obstruction. There is a trace amount of aortic regurgitation. Tricuspid Valve There is no tricuspid stenosis. There is a mild amount of tricuspid regurgitation. There is mild pulmonary hypertension by echo. RVSP is 37 mm of Hg , with RA mean of 10. Pulmonic Valve There is no pulmonic valvular stenosis. There is a trace amount of pulmonic regurgitation. Great Vessels The aortic root is normal size. The inferior vena cava was not visualized. Effusions There is no pericardial effusion. : TATYANA ARELLANO > Melony Bailey
--- NOTE | 2018-07-20 10:41 | Progress Note ---
Provider Note Provider Note: Cardiology note: Echo : Cannot comment on the apical and basal anterir and inferior adames,Rest contract normally.Mild LVH.LVEF > than 60%.Trace MR.No MVP or MS.No ,trace AR.Mild TR and Mild pulmonary hypertension.Discussed with patient and . Patient is asymptomatic,hence acceptable cardiac risk. End of cardiac follow- up. Please call me if my services are needed again postoperatively if the patient should run into any cardiac problems. We will sign off. The patient and his desire to follow-up with me in the office. Contact telephone numbers given.
[2018-07-20] MEDS: LISINOPRIL 10 MG TABLET PO SCH (14:42)
[2018-07-20] MEDS: TAMSULOSIN HCL 0.4 MG CAP.SR.24H PO SCH (14:42)
[2018-07-20] MEDS: OXYBUTYNIN CHLORIDE 5 MG TABLET PO SCH ×2 (14:42→21:38)
[2018-07-20] MEDS: CITALOPRAM HYDROBROMIDE 20 MG TABLET PO SCH (14:43)
[2018-07-20] MEDS: FOLIC ACID 1 MG TABLET PO SCH (14:43)
[2018-07-20] MEDS: MULTIVIT-STRESS FORMULA/ZINC TABLET PO SCH (17:37)
[2018-07-20] MEDS: LANSOPRAZOLE 30 MG TAB.RAP.DR PO SCH (17:38)
[2018-07-21] MEDS: LANSOPRAZOLE 30 MG TAB.RAP.DR PO SCH ×2 (05:28→17:22)
[2018-07-21] MEDS: OXYBUTYNIN CHLORIDE 5 MG TABLET PO SCH ×2 (05:28→17:07)
[2018-07-21] MEDS: LISINOPRIL 10 MG TABLET PO SCH (09:30)
[2018-07-21] MEDS: TAMSULOSIN HCL 0.4 MG CAP.SR.24H PO SCH (09:30)
[2018-07-21] MEDS: MULTIVIT-STRESS FORMULA/ZINC TABLET PO SCH (09:30)
[2018-07-21] MEDS: CITALOPRAM HYDROBROMIDE 20 MG TABLET PO SCH (09:30)
[2018-07-21] MEDS: FOLIC ACID 1 MG TABLET PO SCH (09:31)
[2018-07-21] MEDS ORDERED: (PENDING PHARMACY ID) (Citalopram Hydrobromide [Celexa 10 Mg Tablet] 10 MG) PO SCH (10:00)
[2018-07-21] MEDS ORDERED: FENTANYL CITRATE INJ/PF 100 MCG/2 ML AMPUL ONE (12:15)
[2018-07-21] MEDS ORDERED: KETAMINE HCL INJ 500 MG/10 ML VIAL ONE (12:15)
[2018-07-21] MEDS ORDERED: EPHEDRINE SULFATE INJ 50 MG/1 ML AMPULE ONE (12:16)
[2018-07-21] MEDS ORDERED: ACETAMINOPHEN 0 MG/0 ML RTUPB IV ONE (12:16)
[2018-07-21] MEDS ORDERED: MIDAZOLAM 2 MG/2 ML INJ ONE (12:16)
[2018-07-21] MEDS ORDERED: PROPOFOL INJ 200 MG/20 ML VIAL IV ONE (12:17)
[2018-07-21] MEDS ORDERED: LIDOCAINE 1% INJ-PF (10 MG/ML) 30 ML SDV ONE (12:36)
[2018-07-21] MEDS ORDERED: HEPARIN SOD (PORCINE) 1,000 UNIT/ML 10 ML VIAL ONE (12:36)
[2018-07-21] MEDS ORDERED: BUPIVACAINE HCL 0.25 % INJ/PF (2.5 MG/1 ML) 30 ML VIAL ONE (12:36)
[2018-07-21] MEDS ORDERED: LIDOCAINE 0.5% INJ-PF (5 MG/ML) 50 ML SDV ONE (12:36)
[2018-07-21] MEDS ORDERED: BACITRACIN INJ 50,000 UNIT VIAL ONE (12:37)
[2018-07-21] MEDS ORDERED: CEFAZOLIN INJ 1 GM VIAL ONE (12:48)
[2018-07-21] MEDS ORDERED: PROMETHAZINE HCL INJ 25 MG/1 ML VIAL IV PRN (14:11)
[2018-07-21] MEDS ORDERED: FENTANYL CITRATE INJ/PF 100 MCG/2 ML AMPUL IV PRN ×2 (14:11)
[2018-07-21] MEDS ORDERED: DIPHENHYDRAMINE HCL 50 MG/ML VIAL IV PRN (14:11)
--- NOTE | 2018-07-21 15:43 | Discharge Summary ---
Discharge Summary (SDC) - Discharge Final Diagnosis: #1 malfunctioning AV fistula left arm. 2. End-stage renal disease on hemodialysis. 3. Insulin-dependent diabetes mellitus. 4. COPD. 5. Coronary artery disease. 6. Hypertension Date of Surgery: 07/21/18 Discharge Date: 07/21/18 Condition: Fair Treatment or Instructions: Discharge home [after recovery per ASU criteria]. Diet , [renal],, diabetic, as tolerated, when fully awake advance as tolerated. Activities within moderation encouraged. Follow up in my office by appointment in about [1 week]. Call for appointment. Leave wounds [covered], [keep clean and dry, until office visit in 1 week]. MD drain as necessary. Please instruct patient and his in use. Hold of on school/work [until evaluation in office]. Meds per med rec. Percocet. May shower [in 48 hrs], [try to keep operated area as dry as possible]. 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 Respiratory Treatments at Home: Deep Breathing/Coughing Discharge Activity: Activity As Tolerated Report the Following to Your Physician Immediately: Shortness of Breath, Unusual Bleeding
--- NOTE | 2018-07-21 15:48 | Operative Report ---
Operative Report DATE OF SURGERY: 07/21/18 PREOPERATIVE DIAGNOSIS: #1 malfunctioning AV fistula left arm. 2. End-stage r enal disease on hemodialysis. 3. Insulin-dependent diabetes mellitus. 4. COPD. 5. Coronary artery disease. 6. Hypertension POSTOPERATIVE DIAGNOSIS: #1 malfunctioning AV fistula left arm. 2. End-stage renal disease on hemodialysis. 3. Insulin-dependent diabetes mellitus. 4. COPD. 5. Coronary artery disease. 6. Hypertension OPERATION: Insertion of transposed basilic vein fistula, left arm. SURGEON: TATYANA LONDON JACQUARD PLATE MAKER: None. ANESTHESIA: LMAC TISSUE REMOVED OR ALTERED: Not applicable. COMPLICATIONS: None. ESTIMATED BLOOD LOSS: 20 mL. INTRAOPERATIVE FINDINGS: Of a very robust to develop basilic vein. Satisfactory transposed laterally with nice palpation and thrill at the end of the procedure. Estimated to be 7 mm in diameter. Meticulous preservation of adjacent peripheral nerves during the procedure. PROCEDURE: Operative Report PROCEDURE: After reviewing the procedure with the patient, and his family, he was taken to the operating room. The patient was sedated and the left upper extremity prepared with chlorhexidine and draped out with sterile linen. After the "" universal timeout", in which it was verified that the patient [received IV antibiotics] the procedure commenced. The sterilely sheathed ultrasound probe was used to evaluate the size and topographic location of the existing veins. This was transcribed topographical using a marking pen. Local anesthesia was infiltrated and a longitudinal incision started just above the elbow and dissection proceeded down to the vein. Sequential infiltration of local anesthesia, incision and dissection of the vein proceeded up to the axillary fold. The basilic vein was now dissected away from its branches which were either clipped and/or ligated and divided. In this way the basilic vein was freed up for its entire visible length. Its length was now measured with a dry umbilical tape which was used to transpose a tunnel onto the skin anteriorly and laterally. With this marked in ink, local anesthesia was infiltrated in the skin and subcutaneous tissue of the tunnel. A Chandler tu nneler was now used to transpose the vein which was transected distally, into the tunnel. Interrupted 3-0 PDS were placed at intervals and used to retract the skin flap laterally. The subcutaneous tissue and fascia were now transected over the Chandler tunneler. The fistula was now placed in the tunnel which was now reconstructed with interrupted sutures of 3-0 PDS placed between the investing fascia over the muscle and under the skin. This was palpated externally and found to be satisfactory. The subcutaneous tissues were now closed using interrupted 3-0 PDS. A 15 Spanish Erick drain was have been inserted via separate incision made medially. It was anchored using 3-0 PDS. The skin was closed with a continuous subcutaneous suture of 4-0 Monocryl. Steri-Strips were applied over benzoin and then a Kerlix wrap. The procedure was concluded. Copies dictated operative report to Dr. Tatyana Pressley MD thank you. DICTATING PHYSICIAN: TATYANA PRESSLEY M.D.
[2018-07-21 22:04] VITALS: BP 139/61
--- NOTE | 2018-07-29 14:03 | HISTORY AND PHYSICAL E ---
History and Physical NAME: CHIKA TELLES : 1950 AGE: 67Y ADMITTED: 07/19/2018 ROOM: 535 ADMITTING DIAGNOSES: 1. Malfunctioning AV fistula, left arm. 2. End-stage renal disease on hemodialysis. 3. Insulin-dependent diabetes mellitus. 4. COPD. 5. Coronary artery disease. 6. Hypertension. PAST MEDICAL HISTORY: 1. End-stage renal disease. 2. Diabetes. 3. COPD. 4. Coronary artery disease. ALLERGIES: *------*. REVIEW OF SYSTEMS: Essentially benign except chronic respiratory insufficiency noted. PHYSICAL EXAMINATION: GENERAL: A very pleasant 67-year-old male, frail built. EYES: Mucous membranes pale and moist. Sclerae anicteric. OROPHARYNX: Shows missing dentition. RESPIRATORY: No shortness of breath at rest. Breath sounds are normal and equal, somewhat distant. CARDIAC: Heart sounds 1 and 2 normal, no murmurs. EXTREMITIES: Upper extremities show normal range of movement. Pulses difficult to feel at the radials bilaterally. *------* normal. Left arm basilic vein fistula appreciated by bruit, deep and inaccessible for use. PLAN: Admit the patient for transposition of the left arm basilic vein fistula. The procedure, its risks, benefits, expected outcome, and alternatives are familiar to the patient, and he wishes to proceed. DICTATING PHYSICIAN: TATYANA ARELLANO M.D. [id number] PHY#: [id number] ID: [id number] JOB#: [id number] ACCT: [id number] cc:TATYANA ARELLANO M.D. >
== END 2018-07-21 22:00 | disposition home or self-care (01) ==
LOC: 5 17:19
PROVIDERS: ADMIT Surgery; ATTEND Surgery
PROC: 05SC0ZZ Reposition Left Basilic Vein, Open Approach (ICD-10-PCS; principal; 2018-07-21 12:30)
DX: T82.590A Other mechanical complication of surgically created arteriovenous fistula, initial encounter (principal); Y83.8 Other surgical procedures as the cause of abnormal reaction of the patient, or of later complication, without mention of misadventure at the time of the procedure; E11.22 Type 2 diabetes mellitus with diabetic chronic kidney disease; I12.0 Hypertensive chronic kidney disease with stage 5 chronic kidney disease or end stage renal disease; N18.6 End stage renal disease; J44.9 Chronic obstructive pulmonary disease, unspecified; I25.10 Atherosclerotic heart disease of native coronary artery without angina pectoris; N40.1 Benign prostatic hyperplasia with lower urinary tract symptoms; I25.2 Old myocardial infarction; F17.200 Nicotine dependence, unspecified, uncomplicated; I44.0 Atrioventricular block, first degree; R01.1 Cardiac murmur, unspecified; E46 Unspecified protein-calorie malnutrition; N39.498 Other specified urinary incontinence; Z99.2 Dependence on renal dialysis; Z79.4 Long term (current) use of insulin; Z95.828 Presence of other vascular implants and grafts; Z79.899 Other long term (current) drug therapy; Z01.810 Encounter for preprocedural cardiovascular examination; F32.9 Major depressive disorder, single episode, unspecified; Z87.11 Personal history of peptic ulcer disease; Z87.19 Personal history of other diseases of the digestive system
CPT/HCPCS: 36819; 36415 ×2; 82553 ×2; 82962; 82550 ×2; 85025; 80048; 84484 ×2; 93306; 71045; 93005; 93010; G0378 ×3; G0379; J2250; J3490 ×4; J0690; A9270 ×13; J3010; J1644; J2704; 1844; J0131

== ENCOUNTER 2018-10-13 15:04 | Emergency (ER) | payer MEDICARE, MEDICAID ==
--- NOTE | 2018-10-13 15:36 | ER Document Report ---
ED Medical Screen (RME) - General Chief Complaint: Dialysis Shunt Problem Stated Complaint: SHUNT PROBLEM Time Seen by Provider: 10/13/18 15:30 Primary Care Provider: ERNST HECK NP-C [Primary Care Provider] - Follow up as needed TRAVEL OUTSIDE OF THE [place] IN LAST 30 DAYS: No - HPI Notes: 10/13/18 15:34 Patient is a 67-year-old male with a history of end-stage renal disease and on dialysis every Thursday/Thursday/Thursday who presents to the emergency department per the direction of his coverage specialist rn for evaluation as his port is not working and was found to have lower blood pressure at the dialysis center. Patient states that he is here and was supposed to have dialysis performed so he can have the port fixed tomorrow. He is otherwise able to eat and drink without dif ficulty. Denies RIVERA, fever, neck pain, URI, CP, SOB, Abd pain, or rash. I have treated and performed a rapid initial assessment of this patient. A comprehensive ED assessment and evaluation of the patient, analysis of test results and completion of medical decision making process will be conducted by additional ED providers. PHYSICAL EXAMINATION: GENERAL: Well-appearing, well-nourished and in no acute distress. A&Ox4. Answers questions appropriately. LUNGS: Breath sounds clear to auscultation bilaterally and equal. No wheezes rales or rhonchi. HEART: Regular rate and rhythm without murmurs, rubs, gallops. Left arm: no thrill noted. - Related Data Allergies/Adverse Reactions: No Known Allergies Allergy (Verified 10/13/18 15:08) Past Medical History - Social History Frequency of alcohol use: None Drug Abuse: None - Past Medical History Cardiac Medical History: Reports: Hx Coronary Artery Disease, Hx Heart Attack, Hx Hypertension - hyper and hypo Pulmonary Medical History: Denies: Hx Asthma, Hx Bronchitis, Hx COPD, Hx Pneumonia Neurological Medical History: Denies: Hx Cerebrovascular Accident, Hx Seizures Endocrine Medical History: Reports: Hx Diabetes Mellitus Type 2 Renal/ Medical History: Reports: Hx End Stage Renal Disease. Denies: Hx Peritoneal Dialysis Musculoskeltal Medical History: Denies Hx Arthritis - Immunizations Hx Diphtheria, Pertussis, Tetanus Vaccination: Yes History of Influenza Vaccine for 03/2017 - 08/2017 Season: Yes Influenza Administration Date for 03/2017 - 08/2017 Season: 03/29/18 Physical Exam - Vital signs Vitals: Pulse Resp BP Pulse Ox 67 18 134/85 H 94 10/13/18 15:26 10/13/18 15:26 10/13/18 15:26 10/13/18 15:26 Course - Vital Signs Vital signs: Temp Pulse Resp BP Pulse Ox 67 18 134/85 H 94 10/13/18 15:26 10/13/18 15:26 10/13/18 15:26 10/13/18 15:26 Doctor's Discharge - Discharge Referrals: ERNST HECK, TOOL AND DIE ASSEMBLER-C [Primary Care Provider] - Follow up as needed
--- NOTE | 2018-10-13 17:08 | RADIOLOGY REPORT (SQ) ---
EXAM DESCRIPTION: CHEST SINGLE VIEW COMPLETED DATE/TIME: 10/13/2018 4:53 pm REASON FOR STUDY: weak COMPARISON: AP chest 07/19/2018, 06/22/2018 EXAM PARAMETERS: NUMBER OF VIEWS: One view. TECHNIQUE: Single frontal radiographic view of the chest acquired. RADIATION DOSE: NA LIMITATIONS: None. FINDINGS: LUNGS AND PLEURA: No opacities, masses or pneumothorax. No pleural effusion. MEDIASTINUM AND HILAR STRUCTURES: No masses. Contour normal. HEART AND VASCULAR STRUCTURES: Heart normal in size. Normal vasculature. BONES: No acute findings. HARDWARE: None in the chest. OTHER: No other significant finding. IMPRESSION: NO ACUTE RADIOGRAPHIC FINDING IN THE CHEST. TECHNICAL DOCUMENTATION: JOB ID: [id number] [employer]- All Rights Reserved Reading location - IP/workstation name: [email or web address]
[2018-10-13 18:04] LABS: HEMATOCRIT 42.8 % (37.9-51.0); HEMOGLOBIN 13.9 g/dL (13.5-17.0); MEAN CORPUSCULAR HEMOGLOBIN 29.3 pg (27.0-33.4); MEAN CORPUSCULAR HGB CONC 32.5 g/dL (32.0-36.0); MEAN CORPUSCULAR VOLUME 90 fl (80-97); PLATELET COUNT 165 10^3/uL (150-450); RED BLOOD COUNT 4.75 10^6/uL (4.35-5.55); RED CELL DISTRIBUTION WIDTH 17.3 % (11.5-14.0); WHITE BLOOD COUNT 19.3 10^3/uL (4.0-10.5)
[2018-10-13 18:12] LABS: INTERNATIONAL RATION (INR) 1.24; PARTIAL THROMBOPLASTIN TIME 36.4 SEC (23.5-35.8); PROTHROMBIN TIME 16.3 SEC (11.4-15.4)
[2018-10-13 18:23] LABS: ABSOLUTE LYMPHOCYTES# (MANUAL) 0.8 10^3/uL (0.5-4.7); ABSOLUTE MONOCYTES # (MANUAL) 0.6 10^3/uL (0.1-1.4); ABSOLUTE NEUTROPHILS# (MANUAL) 17.9 10^3/uL (1.7-8.2); BAND NEUTROPHILS % (MANUAL) 2 % (3-5); BASOPHILS % (MANUAL) 0 % (0-2); EOSINOPHILS % (MANUAL) 0 % (0-6); LYMPHOCYTES % (MANUAL) 4 % (13-45); MONOCYTES % (MANUAL) 3 % (3-13); SEGMENTED NEUTROPHILS % (MAN) 91 % (42-78); TOTAL CELLS COUNTED 100
[2018-10-13 18:24] LABS: ANISOCYTOSIS 1+; PLATELET COMMENT ADEQUATE; TOXIC GRANULATION SLIGHT
[2018-10-13 18:25] LABS: ALANINE AMINOTRANSFERASE 20 U/L (21-72); ALBUMIN 2.6 g/dL (3.5-5.0); ALKALINE PHOSPHATASE 133 U/L (38-126); ANION GAP 12 (5-19); ASPARTATE AMINO TRANSFERASE 26 U/L (17-59); BILIRUBIN,DIRECT 0.6 mg/dL (0.0-0.4); BILIRUBIN,TOTAL 0.6 mg/dL (0.2-1.3); BLOOD UREA NITROGEN 53 mg/dL (7-20); CARBON DIOXIDE 20 mmol/L (22-30); CHLORIDE 103 mmol/L (98-107); GLUCOSE 105 mg/dL (75-110); POTASSIUM 3.8 mmol/L (3.6-5.0); SODIUM 134.8 mmol/L (137-145); TOTAL PROTEIN 6.1 g/dL (6.3-8.2)
--- NOTE | 2018-10-13 19:21 | ER Document Report ---
ED General - General Chief Complaint: Dialysis Shunt Problem Stated Complaint: SHUNT PROBLEM Time Seen by Provider: 10/13/18 15:30 Primary Care Provider: ERNST HECK NP-C [Primary Care Provider] - Follow up as needed Information source: Relative, [facility] Records, Outside Facility Records Notes: 67-year-old male with hypertension, type 2 diabetes, end-stage renal disease Mitchel who currently undergoes dialysis Thursday and Thursday presents via EMS from [facility] with concern for clotting of his left arm fistula which was placed in June by Dr. Pressley. Patient has had dialysis through this fistula previously with his last dialysis treatment 2 days prior to arrival. Patient has no complaints at this time. present provides the majority of the history and states that she was called by [facility] and told that the patient needed to be admitted to the hospital. TRAVEL OUTSIDE OF THE [place] IN LAST 30 DAYS: No - HPI Onset: Just prior to arrival Quality of pain: No pain Severity: None Pain Level: Denies Associated symptoms: None Exacerbated by: Denies Relieved by: Denies Similar symptoms previously: No Recently seen / treated by doctor: No - Related Data Allergies/Adverse Reactions: No Known Allergies Allergy (Verified 10/13/18 15:08) Past Medical History - General Information source: Patient - Social History Smoking Status: Never Smoker Frequency of alcohol use: None Drug Abuse: None Lives with: Spouse/Significant other Family History: CVA, Other - Suicide Patient has suicidal ideation: No Patient has homicidal ideation: No - Past Medical History Cardiac Medical History: Reports: Hx Coronary Artery Disease, Hx Heart Attack, Hx Hypertension - hyper and hypo Pulmonary Medical History: Denies: Hx Asthma, Hx Bronchitis, Hx COPD, Hx Pneumonia Neurological Medical History: Denies: Hx Cerebrovascular Accident, Hx Seizures Endocrine Medical History: Reports: Hx Diabetes Mellitus Type 2 Renal/ Medical History: Reports: Hx End Stage Renal Disease. Denies: Hx Peritoneal Dialysis Musculoskeletal Medical History: Denies Hx Arthritis - Immunizations Hx Diphtheria, Pertussis, Tetanus Vaccination: Yes Review of Systems - Review of Systems Notes: REVIEW OF SYSTEMS: CONSTITUTIONAL : Denies fever, chills, or sweats. Denies recent illness. Denies weight loss, recent hospitalizations. EENT: Denies visual changes, eye pain. Denies sore throat, oral lesions, difficulty swallowing. CARDIOVASCULAR: Denies chest pain. Denies palpitations. Denies lower extremity edema. RESPIRATORY: Denies cough. Denies shortness of breath, wheezing. GASTROINTESTINAL: Denies abdominal pain or distention. Denies nausea, vomit ing, or diarrhea. Denies blood in vomitus, stools, or per rectum. Denies black, tarry stools. Denies constipation. GENITOURINARY: Denies difficulty urinating, painful urination, frequency, bloo d in urine, testicular pain or penile discharge. MUSCULOSKELETAL: Denies back or neck pain or stiffness. Denies joint pain or swelling. SKIN: Denies rash, lesions or sores. HEMATOLOGIC : Denies easy bruising or bleeding. LYMPHATIC: Denies swollen glands. NEUROLOGICAL: Denies confusion or altered mental status. Denies loss of consciousness. Denies dizziness or lightheadedness. Denies headache. Denies weakness or paralysis. Denies problems difficulty with ambulation, slurred speech. Denies sensory loss, numbness, or tingling. Denies seizures. PSYCHIATRIC: Denies anxiety or stress. Denies depression, suicidal ideation, or Physical Exam - Vital signs Vitals: Pulse Resp BP Pulse Ox 67 20 134/85 H 94 10/13/18 15:23 10/13/18 15:23 10/13/18 15:23 10/13/18 15:23 Interpretation: Hypertensive - Notes Notes: PHYSICAL EXAMINATION: GENERAL: Well-appearing, well-nourished and in no acute distress. HEAD: Atraumatic, normocephalic. EYES: Pupils equal round and reactive to light, extraocular movements intact, sclera anicteric, conjunctiva are normal. ENT: Nares patent, oropharynx clear without exudates. Moist mucous membranes. NECK: Normal range of motion, supple without lymphadenopathy LUNGS: Breath sounds clear to auscultation bilaterally and equal. No wheezes rales or rhonchi. HEART: Regular rate and rhythm without murmurs ABDOMEN: Soft, nontender, nondistended abdomen. No guarding, no rebound. No masses appreciated. Musculoskeletal: Normal range of motion, no pitting or edema. No cyanosis. Left upper extremity fistula site without bruit, no palpable pulse. No swelling of the left upper extremity no erythema. NEUROLOGICAL: Cranial nerves grossly intact. Normal speech, normal gait. Normal sensory, motor exams PSYCH: Normal mood, normal affect. SKIN: Warm, Dry, normal turgor, no rashes or lesions noted. Course - Re-evaluation Re-evalutation: 10/13/18 19:[address] Pressley vascular surgeon who states that the patient does not need to be admitted at this time. He states that he will arrange for the patient to undergo declotting of his fistula site. He states that he will call in the morning and arrange this. Patient's potassium currently 3.8 and without EKG abnormalities. 10/13/18 19:22 I also spoke to Dr[address] Mendez nephrology telephone worker and reviewed the patient's physical exam and lab findings and she is agreeable with Dr. Pressley plan at this time. 10/13/18 20:53 Laboratory 10/13/18 10/13/18 10/13/18 17:46 17:46 17:46 WBC 19.3 H RBC 4.75 Hgb 13.9 Hct 42.8 MCV 90 MCH 29.3 MCHC 32.5 RDW 17.3 H Plt Count 165 Total Counted 100 Seg Neutrophils % Not Reportable Seg Neuts % (Manual) 91 H Band Neutrophils % 2 L Lymphocytes % Not Reportable Lymphocytes % (Manual) 4 L Monocytes % Not Reportable Monocytes % (Manual) 3 Eosinophils % Not Reportable Eosinophils % (Manual) 0 Basophils % Not Reportable Basophils % (Manual) 0 Absolute Neutrophils Not Reportable Abs Neuts (Manual) 17.9 H Absolute Lymphocytes Not Reportable Abs Lymphs (Manual) 0.8 Absolute Monocytes Not Reportable Abs Monocytes (Manual) 0.6 Absolute Eosinophils Not Reportable Absolute Eos (Manual) 0.0 Absolute Basophils Not Reportable Abs Basophils (Manual) 0.0 Toxic Granulation SLIGHT Platelet Comment ADEQUATE Anisocytosis 1+ PT 16.3 H INR 1.24 APTT 36.4 H Sodium 134.8 L Potassium 3.8 Chloride 103 Carbon Dioxide 20 L Anion Gap 12 BUN 53 H Creatinine 3.22 H Est GFR ( Amer) 23 L Est GFR (Non-Af Amer) 19 L Glucose 105 Calcium 10.0 Total Bilirubin 0.6 Direct Bilirubin 0.6 H Neonat Total Bilirubin Not Reportable Neonat Direct Bilirubin Not Reportable Neonat Indirect Bili Not Reportable AST 26 ALT 20 L Alkaline Phosphatase 133 H Total Protein 6.1 L Albumin 2.6 L Chest X-Ray 10/13/18 16:01 IMPRESSION: NO ACUTE RADIOGRAPHIC FINDING IN THE CHEST. Temp Pulse Resp BP Pulse Ox 98.2 F 65 17 139/86 H 96 10/13/18 20:00 10/13/18 20:00 10/13/18 20:00 10/13/18 20:00 10/13/18 20:00 67-year-old male with end-stage renal disease presents via EMS after failed dialysis attempt. Patient had a left upper extremity fistula placed in June [address] Pressley and has had no issues until today. Patient's last dialysis was 2 days prior to arrival. Patient has no complaints. No bruit is appreciated. There is no swelling of the left arm no erythema. I did speak to Dr. Pressley who does not believe the patient requires admission at this time an d will arrange for declotting of the fistula tomorrow at [facility]. I also spoke to the patient's covering alining inspector and reviewed his laboratory findings and physical exam and she is agreeable with Dr. Pressley plan. CMP is consistent with end-stage renal disease and shows a creatinine of 3.22. Potassium is 3.8. I did explain the plan to the patient's who is at the bedside. Patient was evaluated and treated as appropriate for the patient's presenting symptoms and complaint, with consideration of any critical or life threatening conditions that may be associated with their obtained history and exam as noted above. All results were discussed with patient and the patient's who is at the bedside. Patient provided the opportunity to ask questions, and express concerns. Patient was educated on treatments based on their presumed diagnosis as noted above. At this time we will discharge the patient with return precautions and follow-up recommendations. Verbal discharge instructions given a the bedside. Medication warnings reviewed. Patient is in agreement with this plan and has verbalized understanding of return precautions. After careful consideration I feel that that patient can be safely discharged from the emergency department, they were advised to followup with a primary care physician in 2-3 days. Dictation on this chart was performed using voice recognition software and may result in unintended grammatical, spelling, syntax or errors. - Vital Signs Vital signs: Temp Pulse Resp BP Pulse Ox 98.2 F 65 17 139/86 H 96 10/13/18 20:00 10/13/18 20:00 10/13/18 20:00 10/13/18 20:00 10/13/18 20:00 - Laboratory Result Diagrams: 10/13/18 17:46 10/13/18 17:46 Laboratory results interpreted by me: 10/13/18 10/13/18 10/13/18 17:46 17:46 17:46 WBC 19.3 H RDW 17.3 H Seg Neuts % (Manual) 91 H Band Neutrophils % 2 L Lymphocytes % (Manual) 4 L Abs Neuts (Manual) 17.9 H PT 16.3 H APTT 36.4 H Sodium 134.8 L Carbon Dioxide 20 L BUN 53 H Creatinine 3.22 H Est GFR ( Amer) 23 L Est GFR (Non-Af Amer) 19 L Direct Bilirubin 0.6 H ALT 20 L Alkaline Phosphatase 133 H Total Protein 6.1 L Albumin 2.6 L - EKG Interpretation by Me EKG shows normal: Sinus rhythm Rate: Normal Rhythm: NSR Discharge - Discharge Clinical Impression: End-stage renal disease on hemodialysis Complication of arteriovenous dialysis fistula Qualifiers: Encounter type: initial encounter Qualified Code(s): T82.9XXA - Unspecified complication of cardiac and vascular prosthetic device, implant and graft, initial encounter Condition: Good Disposition: HOME, SELF-CARE Additional Instructions: I spoke to Dr. Pressley your vascular surgeon who states that he will arrange for declotting of the fistula tomorrow at [facility]. Please call the facility first thing in the morning. I also spoke to your alining inspector who is aware of the situation and is agreeable with the plan to be seen tomorrow at [facility] for declotting of your fistula. Referrals: ERNST HECK, MEDICAL DELIVERY DRIVER-C [Primary Care Provider] - Follow up as needed
[2018-10-13 20:43] VITALS: BP 139/86
--- NOTE | 2018-10-13 21:54 | EKG REPORT ---
SEVERITY:- DEFECTIVE ECG - SINUS RHYTHM FIRST DEGREE AV BLOCK PROBABLE INFERIOR INFARCT, OLD CONSIDER ANTEROSEPTAL INFARCT LATERAL LEADS ARE ALSO INVOLVED BORDERLINE PROLONGED QT INTERVAL BASELIE ARTIFACT.REPEAT EKG : Confirmed by: Melony Bailey MD 13-Oct-2018 21:53:53
== END 2018-10-13 20:43 | disposition home or self-care (01) ==
LOC: ER 15:04
DX: T82.9XXA Unspecified complication of cardiac and vascular prosthetic device, implant and graft, initial encounter (principal); E11.22 Type 2 diabetes mellitus with diabetic chronic kidney disease; I12.0 Hypertensive chronic kidney disease with stage 5 chronic kidney disease or end stage renal disease; N18.6 End stage renal disease; Z99.2 Dependence on renal dialysis; I25.10 Atherosclerotic heart disease of native coronary artery without angina pectoris; I25.2 Old myocardial infarction
CPT/HCPCS: 36415; 71045; 80053; 85025; 85610; 85730; 93005; 93010; 99284